=== PATIENT | male | born 1950 | race Caucasian/White ===

== ENCOUNTER → 2017-02-09 | Outpatient (CLI) | payer MEDICARE ==
[~2017-02-09] MED LIST: EFFEXOR XR75 MG PO; LEVOFLOXACIN500 MG PO; MEDROL DOSEPAK4 MG PO; PREVACID30 M1 PO; SPIRIVA18 MCG PO; SYMBICORT1 AE1 INH; TERAZOSIN5 MG PO; TRAZODONE100 MG PO; ZOCOR80 MG PO
== END | disposition home or self-care (01) ==
LOC: CARD 14:38
DX: R06.02 Shortness of breath (principal)

== ENCOUNTER → 2017-06-28 | Outpatient (CLI) | payer MEDICARE | END | disposition home or self-care (01) | LOC: RAD 11:21 | DX: J44.9 Chronic obstructive pulmonary disease, unspecified (principal); F17.200 Nicotine dependence, unspecified, uncomplicated ==

== ENCOUNTER → 2018-02-07 | Outpatient (CLI) | payer MEDICARE | END | disposition home or self-care (01) | LOC: US 12:03 | DX: I73.9 Peripheral vascular disease, unspecified (principal) ==

== ENCOUNTER 2018-09-15 11:08 | Inpatient (IN) | payer MEDICARE ==
[~2018-09-15] VITALS: Ht 152.4 cm; Wt 69.0 kg
--- NOTE | ~2018-09-15 | PR ---
[place], [place] PROGRESS NOTE NAME: GALI BUSTAMANTE [facility] #: [id number] UNIT #: [id number] ROOM: 532 DOCTOR: SYED BRADEN MD BIRTHDATE: [birth year] DOS: SUBJECTIVE: The patient is feeling a lot better. He does not have any new complaints. OBJECTIVE: VITAL SIGNS: Blood pressure is 138/65, pulse of 94, respirations 16, temperature 97.6. LUNGS: Clear. HEART: Regular. ABDOMEN: Soft. EXTREMITIES: Without any edema. ASSESSMENT AND PLAN: 1. Acute exacerbation of chronic obstructive pulmonary disease, improved. 2. Abnormal CT scan. A repeat CT scan to be done in about 3 months. 3. Acute tracheobronchitis, resolved. 4. Moderate cigarette smoker, is refrain from smoking in hospital. Advised against smoking at discharge. SYED BRADEN MD CM:PNTRANS [id number] SYED BRADEN MD 09/18/18 0943 interface
--- NOTE | ~2018-09-15 | DS ---
[place], [place] DISCHARGE SUMMARY NAME: GALI BUSTAMANTE [facility] #: [id number] UNIT #: [id number] ROOM: 532 DOCTOR: SYED BRADEN MD BIRTHDATE: [birth year] DOS: 09/18/2018 The patient was admitted on 09/16/2018 and discharge on 09/18/2018. DIAGNOSES: 1. Acute exacerbation of chronic obstructive pulmonary disease. 2. Acute tracheobronchitis. 3. Benign hypertension. 4. Hypokalemia. 5. Major depression, recurrent, moderate. 6. Lung nodules, which needs to be further worked up as an outpatient with a repeat CAT scan in 3 months. HOSPITAL COURSE: This patient is 68 years old, very well known to us, comes in with complaints of difficulty breathing. He was sick as an outpatient, his p.o. medications did not work. He continued to have a cough and shortness of breath, so he decided to come in. After being seen in the Emergency Room, he was admitted. Chest x-ray did not show any pneumonia or consolidation. Rapid flu was negative. Lactic acid was normal. White cell count was 11.2. The patient was started on steroids, antibiotics, breathing treatments with that there is significant improvement in his condition. He also has been advised not to smoke. A CT of the chest was done, which showed lung nodules, which need to be further followed up as an outpatient since he is a heavy smoker. Repeat CT will be done in 3 months. The patient's blood cultures have come back negative, so plan is to discharge him to home to follow up as an outpatient. DISCHARGE MEDICATIONS: Venlafaxine 150 daily, the dose was increased from 75, Ceftin 250 twice a day for 5 days, prednisone tapering dose, Zocor 80 daily, terazosin 5 daily, Spiriva 1 puff at bedtime, Symbicort 160 two puff twice a day, Prevacid 30 daily, trazodone 100 at bedtime, aspirin 81 daily, omeprazole 20 daily, sildenafil 100 mg daily, prazosin 1 mg daily, lisinopril 10 daily, vitamin D 2000 units daily, mirtazapine 45 at bedtime. [place], [place] DISCHARGE SUMMARY NAME: AGLI BUSTAMANTE [facility] #: [id number] UNIT #: [id number] ROOM: 532 DOCTOR: SYED BRADEN MD BIRTHDATE: [birth year] SYED BRADEN MD CM:CHRIS 8 4 SYED BRADEN MD 09/28/1827 interface
--- NOTE | ~2018-09-15 | PR ---
[place], [place] PROGRESS NOTE NAME: GALI BUSTAMANTE [facility] #: [id number] UNIT #: [id number] ROOM: 532 DOCTOR: SYED BRADEN MD BIRTHDATE: [birth year] DOS: SUBJECTIVE: The patient is feeling much better, does not have any new complaints. OBJECTIVE: VITAL SIGNS: Graphic trend shows a pressure of 152/64, pulse of 82, respirations 20, temperature 97.8. LUNGS: Diminished breath sounds. HEART: Regular. ABDOMEN: Obese, soft. EXTREMITIES: Without any edema. ASSESSMENT AND PLAN: 1. Chronic obstructive pulmonary disease with acute exacerbation. The patient is on maximal treatment plan. 2. Benign hypertension, controlled. 3. Major depression, moderate, recurrent, meds were increased. 4. Lung nodules noted. Repeat images 6 mm, which is the largest. Repeat CT will be ordered in 3 months. SYED BRADEN MD CM:PNTRANS [id number] SYED BRADEN MD 09/17/18 1428 interface
--- NOTE | ~2018-09-15 | WRIGHTHP ---
[place], [place] PATIENT HISTORY AND PHYSICAL EXAM NAME: GALI BUSTAMANTE [facility] #: [id number] UNIT #: [id number] ROOM: 532 DOCTOR: SYED BRADEN MD BIRTHDATE: [birth year] DOS: 09/16/2018 HISTORY OF PRESENT ILLNESS: The patient is 68-year-old very well known to us. The patient was seen in the office about 2 weeks ago. At that time, he was doing well. He called last week complaining of increasing shortness of breath and cough. Antibiotic and steroids were called in, but the patient states it did not work. He continued to be sick. So, he decided finally to come into the Emergency Room yesterday. He has a cough, which is productive of scant amounts of sputum, it is very moist sounding. He denies having any chest pains or palpitations, but has noted some increasing difficulty breathing. He smokes rather heavily about 3 packs of cigarettes, but has not decreased the amount of cigarettes that he has been smoking. PAST MEDICAL HISTORY: Significant for; 1. Benign hypertension. 2. Moderate cigarette smoker. 3. Mixed hyperlipidemia. 4. Major depression, moderate, recurrent. MEDICATIONS: Aspirin 81 mg daily, vitamin D 2000 daily, Prevacid 30 daily, lisinopril 10 daily, mirtazapine 45 daily, omeprazole 20 daily, prazosin 1 mg t.i.d., sildenafil 100 mg daily p.r.n., simvastatin 80 at bedtime, terazosin 5 at bedtime, Spiriva 1 puff b.i.d., trazodone 100 at bedtime, venlafaxine 75 daily. SOCIAL HISTORY: Smokes about close to 3 packs of cigarettes a day. Denies using any alcohol. Lives at home. He is . Children are grown. PHYSICAL EXAMINATION: GENERAL: He is awake and alert and oriented, very moist harsh sounding cough. VITAL SIGNS: Blood pressure is 132/64, pulse of 80, respirations 18, temperature 97.3. LUNGS: Diminished breath sounds, scattered wheezes. HEART: Regular. ABDOMEN: Soft, scaphoid. EXTREMITIES: Without any edema. Rapid flu negative. Lactic acid normal. LABORATORY DATA: White blood cell count 11.2. Comprehensive within normal limits except for blood sugar of 149, potassium is 3.4. Chest x-ray shows no acute lung disease. ASSESSMENT AND PLAN: 1. The patient with chronic obstructive pulmonary disease with acute exacerbation. The patient is placed on IV steroids and breathing treatments. 2. Acute tracheobronchitis. Sputum will be sent for culture. The patient is ordered IV antibiotics. A CT of the chest will be ordered today. 3. Benign hypertension, controlled. 4. Hypokalemia. Supplementation is given. 5. Major depression, increase dose of Effexor. [place], [place] PATIENT HISTORY AND PHYSICAL EXAM [id number] #: [id number] ROOM: [facility] DOCTOR: SYED BRADEN MD BIRTHDATE: [birth year] SYED BRADEN MD CM:HISPHYS:PATIENT HISTORY AND PHYSICAL EXAMINATION 6 9 SYED BRADEN MD 09/16/1850 interface
--- NOTE | ~2018-09-15 | EKG ---
[place], [place] ELECTROCARDIOGRAM REPORT NAME: GALI BUSTAMANTE UNIT #: [id number] ROOM: 532 DOCTOR: TAYE DRAFT REPORT BIRTHDATE: [birth year] [facility] Test Date: 2018-09-15 Test Time: 11:34:24 Pat Name: GALI BUSTAMANTE Department: Room: 532 Gender: M Tire Technician: TREVOR : 1950 Requested By: CROW LOVELACE Order Number: [id number] Reading MD: Gregory Ng MD Measurements Intervals [place] Rate: 95 P: 77 [place]: 156 QRS: -78 QRSD: 90 T: 54 QT: 359 QTc: 452 Interpretive Statements Sinus rhythm Probable left atrial enlargement Left anterior fascicular block Abnormal R-wave progression, early transition Electronically Signed On 09-21-2018 8:44:16 PST by Gregory Ng MD CM:EKGRPT:ELECTROCARDIOGRAM REPORT [id number] CROW LOVELACE EPIPHANY DRAFT REPORT CROW LOVELACE
[2018-09-15 11:10] VITALS: BP 115/69
[2018-09-15 11:56] LABS: BASO % 0.2 % (0.0-1.0); HEMATOCRIT 45.6 % (42.0-52.0); HEMOGLOBIN 15.1 g/dl (14.0-18.0); LYMPH # 1.4 10*3/uL (1.3-4.4); LYMPH % 12.1 % (27.0-41.0); MEAN CELL VOLUME 87.9 fl (80.0-94.0); MEAN CORPUSCULAR HGB 29.1 pg (27.0-31.0); MEAN CORPUSCULAR HGB CONC 33.1 g/dl (33.0-37.0); MEAN PLATELET VOLUME 8.9 fl (9.6-12.3); MONO # 0.4 10*3/uL (0.1-1.0); MONO % 3.6 % (3.0-9.0); NEUT # 9.4 10*3/uL (2.3-7.9); NEUT % 83.4 % (47.0-73.0); PLATELET COUNT AUTOMATED 336 10*3/uL (130-400); RED BLOOD COUNT 5.19 10*6/uL (4.50-5.90); RED CELL DISTRI WIDTH 12.3 % (0-14.5); WHITE BLOOD COUNT 11.2 10*3/uL (4.8-10.8)
[2018-09-15 12:13] LABS: ALBUMIN 2.8 gm/dl (3.1-4.5); ALKALINE PHOSPHATASE 92 U/L (45-117); BUN 17 mg/dl (7-24); CHLORIDE 100 mmol/L (98-107); CREATININE 0.97 mg/dL (0.70-1.30); POTASSIUM 3.4 mmol/L (3.5-5.1); SGOT/AST 16 IU/L (3-35); SGPT/ALT 23 U/L (12-78); SODIUM 141 mmol/L (136-145); TOTAL PROTEIN 7.5 gm/dL (6.4-8.2)
[2018-09-15 12:15] LABS: TROPONIN I < 0.015 ng/ml (<0.045)
[2018-09-15 12:32] VITALS: BP 132/68
--- NOTE | 2018-09-15 12:50 | NUR ---
A 68, admitted to 5E, under the services of SYED Kennedy MD with a diagnosis of COPD EXACERBATION. Chief complaint is SHORTNESS OF BREATH. Patient arrived via bed from ER. Monitor applied. Initial assessment completed. Vital signs taken and recorded. SYED KENNEDY MD notified of admission to the unit. Orders received. See assessment for past medical history, medications and allergies. Patient and/or family oriented to unit. [facility] visitation policy reviewed. Clothing/patient valuable form completed. TEENA NEVES
[2018-09-15] MEDS ORDERED: LOW DOSE ASPIRI81 M1 PO (13:08)
[2018-09-15] MEDS ORDERED: OMEPRAZOLE D/R20 MG PO (13:10)
[2018-09-15 13:13] VITALS: BP 147/72
[2018-09-15] MEDS ORDERED: SILDENAFIL CIT100 MG PO (13:13)
[2018-09-15] MEDS ORDERED: LISINOPRIL10 M1 PO (13:15)
[2018-09-15] MEDS ORDERED: MINIPRESS1 M1 PO (13:15)
[2018-09-15] MEDS ORDERED: MIRTAZAPINE45 MG PO (13:16)
[2018-09-15] MEDS ORDERED: VITAMIN D-32000 UNI1 PO (13:16)
[2018-09-15 16:00] VITALS: BP 149/74
--- NOTE | 2018-09-15 19:21 | NUR ---
PATIENT SLEEPING DURING REPORT. NO S/S OF DISTRESS, RESPS EASY. CALL LIGHT IN REACH
[2018-09-15 20:00] VITALS: BP 146/64
--- NOTE | 2018-09-15 21:36 | NUR ---
PATIENT AWAKE AND ALERT AT THIS TIME. STATED HE WOULD LIKE TO BE A DNR-CC THERE IS NO PAPERWORK ON FILE, WILL GO OVER WITH PATIENT AND SIGN
--- NOTE | 2018-09-15 21:56 | NUR ---
SPOKE WITH PATIENT REGARDING CODE STATUS. HE STATES HE DOES WANT SOME MEDICAL TREATMENTS BUT DOES NOT WANT INTUBATION. PT SIGNED DNRCCA PAPERWORK AND IS AGGREEANCE AND UNDERSTANDING OF WHAT THIS CODE STATUS IS
[2018-09-16] VITALS: BP 132/64
--- NOTE | 2018-09-16 01:30 | NUR ---
PATIENT SLEEPING. NO S/S OF DISTRESS, RESPS EASY ON RA.
--- NOTE | 2018-09-16 04:12 | NUR ---
PATIENT SLEEPING. NO DISTRESS, RESPS EASY. HR 60S PER CM.
--- NOTE | 2018-09-16 06:25 | NUR ---
PATIENT AWAKENS EASILY. NO DISTRESS, NO VOICED CONCERNS.SPO2 ON RA 93%.
[2018-09-16 08:00] VITALS: BP 158/76
[2018-09-16 12:00] VITALS: BP 154/63
[2018-09-16 16:00] VITALS: BP 151/72
[2018-09-16 20:00] VITALS: BP 168/71
[2018-09-17] VITALS (8 sets, daily range): BP systolic 148–180; BP diastolic 60–80
--- NOTE | 2018-09-17 03:52 | NUR ---
24 HR chart check completed.
--- NOTE | 2018-09-17 06:21 | NUR ---
PT CONTINUES TO REFUSE NICOTENE PATCH. PT STATES HE DOES NOT NEED IT. CALL LIGHT IN REACH. NO S/S OF RESPIRATORY DISTRESS NOTED. NO C/O OFFERED AT THIS TIME.
--- NOTE | 2018-09-17 08:48 | NUR ---
VITALS STABLE, A&OX3, JANAE, EQUAL SWITCH TENDER, HEART SOUNDS NORMAL, SKIN PINK, WARM AND DRY, CAP REFILL <3 SECONDS, LUNGS DIMISHED BILATERALLY, BSX4, NONTENDER, NONDESTENDED, NO EDEMA, PPP, PT IS COOPERATIVE, DENIES PAIN AT THIS TIME. WILL CONTINUE TO MONITOR. MOLLY PAN [facility]
--- NOTE | 2018-09-17 09:00 | NUR ---
Software Engineer in to talk to patient. Patient states lives at home with his . There are 10 steps in the home. Physician: Dr. Brandy Ford [facility] Home health services: none Patient's level of ADLs: INDEPENDENT Patient has working utilities: yes DME: nebulizer Follow-up physician's appointment after d/c: he prefers to make his own follow up appt after discharge Does patient want to access PORTAL?: no Discharge plan discussed with patient. He lives at home with his . He is independent in his ADLs and ambulation. Discussed home health care services and he denies any home needs at this time. When medically stable he will be discharged to home. DESIREE ISRAEL
--- NOTE | 2018-09-17 12:00 | NUR ---
VITALS STABLE, A&0X3, JANAE, EQUAL COOLING PIPE INSPECTOR, HEART SOUNDS NORMAL, LUNGS DIMINISHED BILATERALLY, NONPRODUCTIVE COUGH, SKIN WARM, DRY AND PINK, CAP REFILL <3 SECONDS, BSX4, NONTENDER, NONDISTENDED, POSITIVE PEDAL PULSES, NO COMPLAINTS OF PAIN AT THIS TIME, WILL CONTINUE TO ASSESS. [facility]
--- NOTE | 2018-09-17 15:00 | NUR ---
BEDSIDE REPORT OBTAINED FROM AUGUSTO-RYAN. PATIENT APPEARS TO BE ASLEEP AT THIS TIME, EYES CLOSED. NO S&S OF DISTRESS NOTED, RESP ARE ERND ON ROOM AIR. BED IS LOCKED IN LOWEST POSITION, CALL LIGHT LEFT WITHIN REACH.
--- NOTE | 2018-09-17 19:00 | NUR ---
PT AWAKE IN BED DURING BEDSIDE SHIFT REPORT. NO C/O VOICED. CALL LIGHT IN REACH.
--- NOTE | 2018-09-17 22:57 | NUR ---
DR. HOUSE NOTIFIED OF PT'S BP OF 172/62 AFTER HIS HS DOSE OF HYTRIN 5MG. T.O. RCVD FOR CLONIDINE 0.1MG PO X1 NOW.
--- NOTE | 2018-09-17 23:31 | NUR ---
PT MEDICATED W/CLONIDINE PO FOR HTN. PT RESTING QUIETLY IN BED AT THIS TIME. DENIES ANY S/S OF HTN. WILL RECHECK IN 1 HR.
[2018-09-18] VITALS: BP 138/65
--- NOTE | 2018-09-18 04:29 | NUR ---
24 HR chart check completed.
--- NOTE | 2018-09-18 06:42 | NUR ---
PT SAT 88-92% ON RA WHILE RESTING. WOULD YOU LIKE TO ORDER ASSESS FOR HOME O2 PRIOR TO D/C?
[2018-09-18] MEDS ORDERED: VENLAFAXINE HYD75 M3 PO (08:47)
[2018-09-18] MEDS ORDERED: PREDNISONE5 MG PO (08:48)
[2018-09-18] MEDS ORDERED: CEFUROXIME AXE250 MG PO (08:48)
--- NOTE | 2018-09-18 09:40 | NUR ---
Discharge instructions reviewed with patient/family. Patient receptive and verbalizes understanding. Follow-up care arranged. Written instructions given to patient/family. KAVITA KIRK
== END 2018-09-18 09:40 | disposition home or self-care (01) | DRG 191 ==
LOC: ED 11:08 → 5E 12:24 → EDHOLD 12:24 → 5E 12:31
PROVIDERS: Nurse Practitioner Family; ADMIT Internal Medicine
DX: J44.0 Chronic obstructive pulmonary disease with (acute) lower respiratory infection (principal); F33.1 Major depressive disorder, recurrent, moderate; J20.9 Acute bronchitis, unspecified; J44.1 Chronic obstructive pulmonary disease with (acute) exacerbation; F17.210 Nicotine dependence, cigarettes, uncomplicated; Z66 Do not resuscitate; Z51.5 Encounter for palliative care; E78.2 Mixed hyperlipidemia; I10 Essential (primary) hypertension; E87.6 Hypokalemia; R91.8 Other nonspecific abnormal finding of lung field; Z82.5 Family history of asthma and other chronic lower respiratory diseases; Z83.79 Family history of other diseases of the digestive system; Z71.6 Tobacco abuse counseling

== ENCOUNTER → 2019-01-03 | Outpatient (CLI) | payer MEDICARE ==
[~2019-01-03] MED LIST changes: +CEFUROXIME AXE250 MG PO; +LISINOPRIL10 M1 PO; +LOW DOSE ASPIRI81 M1 PO; +MINIPRESS1 M1 PO; +MIRTAZAPINE45 MG PO; +OMEPRAZOLE D/R20 MG PO; +PREDNISONE5 MG PO; +SILDENAFIL CIT100 MG PO; +VENLAFAXINE HYD75 M3 PO; +VITAMIN D-32000 UNI1 PO
[2019-01-03 12:16] LABS: CREATININE 1.28 mg/dL (0.70-1.30)
== END | disposition home or self-care (01) ==
LOC: LAB 11:24
PROVIDERS: Internal Medicine
DX: R91.1 Solitary pulmonary nodule (principal)

== ENCOUNTER 2019-12-24 12:03 | Inpatient (IN) | payer MEDICARE ==
[2019-12-24] VITALS (8 sets, daily range): BP systolic 126–155; BP diastolic 58–72
[~2019-12-24] VITALS: Ht 180.3 cm; Wt 76.8 kg
[2019-12-24 12:49] LABS: BASO % 0.4 % (0.0-1.0); EOS # 0.1 10*3/uL (0.0-0.4); EOS % 0.9 % (1.0-4.0); HEMATOCRIT 40.1 % (42.0-52.0); HEMOGLOBIN 12.7 g/dl (14.0-18.0); LYMPH # 1.7 10*3/uL (1.3-4.4); LYMPH % 19.3 % (27.0-41.0); MEAN CELL VOLUME 86.2 fl (80.0-94.0); MEAN CORPUSCULAR HGB 27.3 pg (27.0-31.0); MEAN CORPUSCULAR HGB CONC 31.7 g/dl (33.0-37.0); MEAN PLATELET VOLUME 9.1 fl (9.6-12.3); MONO # 0.7 10*3/uL (0.1-1.0); NEUT # 6.4 10*3/uL (2.3-7.9); PLATELET COUNT AUTOMATED 407 10*3/uL (130-400); RED BLOOD COUNT 4.65 10*6/uL (4.50-5.90); RED CELL DISTRI WIDTH 13.3 % (0-14.5)
--- NOTE | 2019-12-24 12:58 | NUR ---
PT GIVEN PILLOW READJUST BED POSITION TO FOWLERS POSITION OF COMFORT PT PLACED ON O2 AT 2LPM PULS OX FROM 93% RA TO 97% AT 2LPM PT HAS NO REQUESTS AT THIS TIME
[2019-12-24 13:02] LABS: ALBUMIN 2.6 gm/dl (3.1-4.5); ALKALINE PHOSPHATASE 87 U/L (45-117); BUN 15 mg/dl (7-24); CHLORIDE 101 mmol/L (98-107); CREATININE 1.23 mg/dL (0.70-1.30); POTASSIUM 3.1 mmol/L (3.5-5.1); SGOT/AST 14 IU/L (3-35); SGPT/ALT 22 U/L (12-78); SODIUM 139 mmol/L (136-145); TOTAL PROTEIN 7.9 gm/dL (6.4-8.2); TROPONIN I < 0.015 ng/ml (<0.045)
--- NOTE | 2019-12-24 13:18 | NUR ---
PT REPORT NO CHANGE IN BREATHING EFFORT AFTER BREATHING TX AND O2 VIA NASAL CANNULA
--- NOTE | 2019-12-24 14:00 | NUR ---
PT IN BED RESTING SPOUSE AT BEDSIDE NO REQUESTS AWAITING ROOM FOR ADMISSION
--- NOTE | 2019-12-24 14:51 | NUR ---
Time: 1449 A 69 year old MALE admitted to under services of SYED KENNEDY MD. Pt. arrived via stretcher from ER. Chief complaint: SHORTNESS OF BREATH AT HOME. ZENAIDA FITZGERALD
[2019-12-24] MEDS ORDERED: CYMBALTA60 MG PO (15:20)
[2019-12-24] MEDS ORDERED: LOSARTAN-HCTZ1 EACH PO (15:21)
[2019-12-24] MEDS ORDERED: FLOMAX0.4 MG PO (15:22)
[2019-12-24] MEDS ORDERED: SPIRIVA -- 3018 MCG INH (15:22)
--- NOTE | 2019-12-24 19:20 | NUR ---
IN PT ROOM AT THIS TIME COMPLETING ASSESSMENT. PT STATES THAT HE IS SWEATING AND IS HOT, CHECKED HIS TEMPERATURE AND IT WAS 97.7. HE DENIES COUGHING UP ANY PHLEGM AT THIS TIME. PT HAS NO OTHER NEEDS/ CONCERNS AT THIS TIME. CALL LIGHT IS WITHIN REACH, WILL CONTINUE TO MONITOR
[2019-12-25] VITALS: BP 132/59
--- NOTE | 2019-12-25 00:49 | NUR ---
24 HR chart check completed.
--- NOTE | 2019-12-25 02:54 | NUR ---
Patient sleeping. Respirations relaxed and easy. Sweeties GRACE Wilson
[2019-12-25 06:47] LABS: BASO % 0.1 % (0.0-1.0); HEMOGLOBIN 12.6 g/dl (14.0-18.0); LYMPH # 0.9 10*3/uL (1.3-4.4); LYMPH % 10.2 % (27.0-41.0); MEAN CELL VOLUME 87.1 fl (80.0-94.0); MEAN CORPUSCULAR HGB 27.5 pg (27.0-31.0); MEAN CORPUSCULAR HGB CONC 31.5 g/dl (33.0-37.0); MEAN PLATELET VOLUME 9.5 fl (9.6-12.3); MONO # 0.3 10*3/uL (0.1-1.0); MONO % 2.7 % (3.0-9.0); NEUT % 86.6 % (47.0-73.0); PLATELET COUNT AUTOMATED 434 10*3/uL (130-400); RED BLOOD COUNT 4.59 10*6/uL (4.50-5.90); RED CELL DISTRI WIDTH 13.2 % (0-14.5); WHITE BLOOD COUNT 9.2 10*3/uL (4.8-10.8)
[2019-12-25 07:11] LABS: BUN 18 mg/dl (7-24); CHLORIDE 104 mmol/L (98-107); CREATININE 1.32 mg/dL (0.70-1.30); POTASSIUM 3.8 mmol/L (3.5-5.1); SODIUM 142 mmol/L (136-145)
[2019-12-25 08:00] VITALS: BP 131/63
--- NOTE | 2019-12-25 09:00 | NUR ---
Fruit Grader in to talk to patient. Patient states lives at home with his . There are 10 steps in the home. Physician: Dr. Brandy Ford Pharmacy: [facility] Home health services: none Patient's level of ADLs: INDEPENDENT Patient has working utilities: yes DME: nebulizer Follow-up physician's appointment after d/c: he prefers to make his own follow up appt after discharge Does patient want to access PORTAL?: no Discharge plan discussed with patient. He lives at home with his . He is independent in his ADLs and ambulation. Discussed home health care services and he denies any home needs at this time. When medically stable he will be discharged to home. He states his will provide transportation on discharge. DESIREE ISRAEL
[2019-12-25 12:00] VITALS: BP 128/50
[2019-12-25 16:00] VITALS: BP 123/56
[2019-12-25 20:12] VITALS: BP 137/58
--- NOTE | 2019-12-25 20:46 | NUR ---
IN TO ASSESS PATIENT, PATIENT PLEASANT AND COOPERATIVE WITH ASSESSMENT. NO DISTRESS NOTED ON 2L PATIENT STATES HE ONLY GETS SHORT OF BREATH WITH EXERTION. LUNGS DIMISNIHED WITH RONCHI POSTERIOR AND FAINT EXPIRATORY WHEEZE T/O. PATIENT STATES HE HAS A NON PRODUCTIVE COUGH. CALL LIGHT WIHTIN REACH, WILL MONITOR
[2019-12-26] VITALS: BP 113/50
--- NOTE | 2019-12-26 03:13 | NUR ---
24 HR chart check completed.
[2019-12-26 08:00] VITALS: BP 162/74
--- NOTE | 2019-12-26 08:00 | NUR ---
PATIENT AWAKE, ALERT AND ORIENTED. NO STATED COMPLAINTS AT THIS TIME. DENIES PAIN. PT IS PLEASANT AND COOPERATIVE. RESPIRATIONS ARE EASY AND REGULAR AT REST. ROOM AIR. NO DISTRESS NOTED. BED IN LOWEST LOCKED POSITION AND CALL LIGHT WTIHIN REACH. WILL CONTINUE TO MONITOR.
--- NOTE | 2019-12-26 08:42 | NUR ---
Cobol Programmer in to see patient. No new needs or request at this time. He denies any home needs. When medically stable he will be discharged to home.
--- NOTE | 2019-12-26 09:20 | NUR ---
pt assessed for home oxygen. pt qualified. pt at rest spo2 93% ra, hr 99, rr 18, b/p 113/50 pt ambulated spo2 87-88% ra placed pt on 2lnc. pt at rest spo2 94% 2lnc, hr 127, rr 21, b/p 132/[address] portillo notified.
--- NOTE | 2019-12-26 09:30 | NUR ---
PT WALKING IN HALLS BEING EVALUATED FOR HOME O2.
--- NOTE | 2019-12-26 11:19 | NUR ---
IN TO ROOM. PATIENT SITTING IN BED, READING NEWSPAPER. PT DENIES PAIN AND HAS NO COMPLAINTS AT THIS TIME. ROOM AIR AND NO SOB NOTED AT REST. BED IN LOWEST LOCKED POSITION AND CALL LIGHT WITHIN REACH. WILL CONTINUE TO MONITOR.
[2019-12-26 12:00] VITALS: BP 154/69
[2019-12-26 16:00] VITALS: BP 151/68
[2019-12-26 20:00] VITALS: BP 163/69
--- NOTE | 2019-12-26 23:03 | NUR ---
24 HR chart check completed.
[2019-12-27] VITALS: BP 161/80; BP 170/76
[2019-12-27 05:53] VITALS: BP 168/84
[2019-12-27] MEDS ORDERED: CEFUROXIME AXE250 MG PO (07:48)
[2019-12-27] MEDS ORDERED: PREDNISONE5 MG PO (07:48)
[2019-12-27 08:00] VITALS: BP 182/80
--- NOTE | 2019-12-27 08:05 | NUR ---
DR. Ford notified of elevated bp of 182/80. States she will add norvasc to home meds and to give dose prior to dc.
[2019-12-27] MEDS ORDERED: NORVASC2.5 MG PO (08:15)
--- NOTE | 2019-12-27 08:43 | NUR ---
Faxed nebulizer prescription to [facility]. Awaiting response.
--- NOTE | 2019-12-27 08:47 | NUR ---
FAXED OXYGEN ORDER TO [facility], RN NOTIFIED.
--- NOTE | 2019-12-27 08:51 | NUR ---
Dynamite Reclaimer in to see patient. Notified patient nebulizer prescription was sent to [facility] where his O2 will be delivered from and he verbalized an understanding. Discussed home health care services and he denies any home needs at this time. He is awaiting his discharge.
--- NOTE | 2019-12-27 10:35 | NUR ---
Received call from Patricia at [facility] regarding Dr. Ford requesting to have patient's duoneb and pulmicort filled through them. Notified Dr. Ford and Dr. Ford's office staff to be aware of fax.
--- NOTE | 2019-12-27 11:06 | NUR ---
Awaiting delivery of oxygen prior to discharge to home. Pt updated. Respiratory called and place order over an hour ago so hopefully soon.
[2019-12-27 12:00] VITALS: BP 158/72
--- NOTE | 2019-12-27 13:15 | NUR ---
Pt dc in care of wheelchair. Pt has oygen for home use with him and meds from pharmacy were given to pt. Explained new scripts. Rechecked pt BP at this time 162/78. Pt taken out via wheelchair to ER exit for daughter to supervisor opening and picking.
== END 2019-12-27 13:15 | disposition home or self-care (01) | DRG 682 ==
LOC: ED 12:03 → 4E 14:24 → EDHOLD 14:24 → 4E 14:39
PROVIDERS: Emergency Medicine; ADMIT Internal Medicine
DX: N17.0 Acute kidney failure with tubular necrosis (principal); J96.01 Acute respiratory failure with hypoxia; J44.1 Chronic obstructive pulmonary disease with (acute) exacerbation; J20.9 Acute bronchitis, unspecified; I10 Essential (primary) hypertension; F32.9 Major depressive disorder, single episode, unspecified; Z87.891 Personal history of nicotine dependence; Z79.82 Long term (current) use of aspirin; Z79.899 Other long term (current) drug therapy

== ENCOUNTER 2020-08-17 11:30 | Inpatient (IN) | payer MEDICARE ==
[~2020-08-17] VITALS: Ht 178 cm; Wt 82.2 kg
[~2020-08-17 11:30] MED LIST changes: +CYMBALTA60 MG PO; +FLOMAX0.4 MG PO; +LOSARTAN-HCTZ1 EACH PO; +NORVASC2.5 MG PO; +SPIRIVA RESPIMAT4 GM INH
[2020-08-17 11:42] VITALS: BP 158/78
[2020-08-17 11:57] LABS: BASO % 0.4 % (0.0-1.0); EOS # 0.1 10*3/uL (0.0-0.4); EOS % 1.8 % (1.0-4.0); HEMATOCRIT 43.8 % (42.0-52.0); LYMPH # 1.7 10*3/uL (1.3-4.4); LYMPH % 23.3 % (27.0-41.0); MEAN CELL VOLUME 84.2 fl (80.0-94.0); MEAN CORPUSCULAR HGB 26.5 pg (27.0-31.0); MEAN CORPUSCULAR HGB CONC 31.5 g/dl (33.0-37.0); MEAN PLATELET VOLUME 9.6 fl (9.6-12.3); MONO # 0.6 10*3/uL (0.1-1.0); MONO % 7.5 % (3.0-9.0); NEUT # 4.9 10*3/uL (2.3-7.9); NEUT % 66.7 % (47.0-73.0); PLATELET COUNT AUTOMATED 239 10*3/uL (130-400); RED CELL DISTRI WIDTH 14.3 % (0-14.5); WHITE BLOOD COUNT 7.4 10*3/uL (4.8-10.8)
[2020-08-17 12:07] LABS: CHLORIDE 106 mmol/L (98-107); POTASSIUM 3.8 mmol/L (3.5-5.1); SODIUM 140 mmol/L (136-145)
[2020-08-17 12:08] LABS: ACT PARTIAL THROMBO TIME 30.7 SECONDS (20.0-32.1)
[2020-08-17 12:15] VITALS: BP 142/66
[2020-08-17 12:23] LABS: ALBUMIN 3.6 gm/dl (3.1-4.5); ALKALINE PHOSPHATASE 101 U/L (45-117); BUN 16 mg/dl (7-24); SGOT/AST 18 IU/L (3-35); SGPT/ALT 31 U/L (12-78); TOTAL PROTEIN 7.8 gm/dL (6.4-8.2)
[2020-08-17 12:28] LABS: TROPONIN I < 0.015 ng/ml (<0.045)
[2020-08-17 14:19] VITALS: BP 145/72
[2020-08-17 15:32] VITALS: BP 156/78
--- NOTE | 2020-08-17 15:42 | NUR ---
CALLED DR. BRADEN FOR ADMISSION ORDERS. LEFT VOICEMAIL AWAITING RETURN CALL.
--- NOTE | 2020-08-17 15:49 | NUR ---
RETURN CALL FROM DR. BRADEN
--- NOTE | 2020-08-17 16:16 | NUR ---
CONSULT FOR DR. STEVE WASSERMAN. STATES HE WAS AWARE.
[2020-08-17 18:04] VITALS: BP 131/69
--- NOTE | 2020-08-17 18:50 | NUR ---
PT RESTING IN BED WATCHING TV. IV ATB COMPLETED. DENIES THE NEED FOR ANYTHING AT THIS TIME. CALL LIGHT WITHIN REACH.
--- NOTE | 2020-08-17 19:41 | NUR ---
attempted to call Gina DAVIS to see if she was ready for admission, did not get an answer at this time. Will call back
--- NOTE | 2020-08-17 20:28 | NUR ---
NEW ORDER PER DR. BRADEN IS TYLENOL 650MG EVERY 6 HOURS PRN FOR PAIN
[2020-08-18] VITALS (7 sets, daily range): BP systolic 137–169; BP diastolic 59–76
--- NOTE | 2020-08-18 01:28 | NUR ---
PATIENT UP AND AMBULATED TO BATHROOM WITH STEADY GAIT. DENIES NEED FOR ANYTHING AT THIS TIME. CALL LIGHT WITHIN REACH.
--- NOTE | 2020-08-18 02:32 | NUR ---
PATIENT RESTING IN BED WITH EYES CLOSED, CALL LIGHT WITHIN REACH.
--- NOTE | 2020-08-18 02:57 | NUR ---
ASSUMED PT CARE FROM NORAH PEREZ
--- NOTE | 2020-08-18 03:27 | NUR ---
PT RESTING IN BED WITH EYES OPEN, NO DISTRESS NOTED, CALL LIGHT WITHIN REACH, RN WILL CONTINUE TO MONITOR
--- NOTE | 2020-08-18 07:26 | NUR ---
REPORT RECIEVED FORM HUMBERTO DAVIS
--- NOTE | 2020-08-18 07:26 | NUR ---
PT IN BED RECIEVING RESP TREATMENT PT WITH NO REQUESTS AT THIS TIME
--- NOTE | 2020-08-18 07:34 | NUR ---
PHARM TO SEND SOLU-MEDROL MED IS NOT LISTED IN [facility]
[2020-08-18] MEDS ORDERED: DULERA 200 MCG8.8 GM INH (08:33)
[2020-08-18] MEDS ORDERED: COZAAR50 M1 PO (08:34)
--- NOTE | 2020-08-18 09:19 | NUR ---
PT OFFERED O2 NC PT REFUSED
--- NOTE | 2020-08-18 09:36 | NUR ---
TOLD TO HOLD PT IN ER FOR DR WILSON FOR EVAL
--- NOTE | 2020-08-18 10:30 | NUR ---
A 69, admitted to 5E, under the services of SYED Kennedy MD with a diagnosis of COPD. Chief complaint is SHORTNESS OF BREATH. Patient arrived via bed from ER. Monitor applied. Initial assessment completed. Vital signs taken and recorded. SYED KENNEDY MD notified of admission to the unit. Orders received. See assessment for past medical history, medications and allergies. Patient and/or family oriented to unit. [facility] visitation policy reviewed. Clothing/patient valuable form completed. TEENA NEVES
--- NOTE | 2020-08-18 12:30 | NUR ---
Automotive Quality Engineer in to talk to patient. Patient states lives at home with his . There are 10 steps in the home. Physician: Dr. Brandy Ford Pharmacy: [facility] Home health services: none Patient's level of ADLs: INDEPENDENT Patient has working utilities: yes DME: nebulizer, O2 @ 2L nc @ HS, portable O2 tank, O2 supplier [facility] Follow-up physician's appointment after d/c: he prefers to make his own follow up appt after discharge Does patient want to access PORTAL?: no Discharge plan discussed with patient. He lives at home with his . He is independent in his ADLs and ambulation. Discussed home health care services and he declines. CM will continue to follow for any discharge planning needs. When medically stable he will be discharged to home. He states his will provide transportation on discharge. DESIREE ISRAEL
--- NOTE | 2020-08-18 19:54 | NUR ---
NEW IV TO RAC ESTABLISED. TOLERATED WELL. DILAUDID GIVEN PER ORDERS OF BACK PAIN RATED 8/10. WILL MONITOR EFFECTIVENESS. CALL LIGHT IN REACH.
--- NOTE | 2020-08-18 20:46 | NUR ---
PER PT. DILAUDID EFFECTIVE. PAIN RATED 0/10. WILL MONITOR. ASKED PT IF HE WANTED TO BE WOKEN FOR PAIN MEDS DUE AT 0300. SAID NO.
[2020-08-19] VITALS (9 sets, daily range): BP systolic 146–173; BP diastolic 65–95
--- NOTE | 2020-08-19 01:24 | NUR ---
24HR CHART CHECK COMPLETED
[2020-08-19 06:17] LABS: BASO % 0.1 % (0.0-1.0); HEMATOCRIT 42.6 % (42.0-52.0); LYMPH % 7.7 % (27.0-41.0); MEAN CELL VOLUME 85.2 fl (80.0-94.0); MEAN CORPUSCULAR HGB 26.4 pg (27.0-31.0); MEAN PLATELET VOLUME 9.8 fl (9.6-12.3); MONO # 0.6 10*3/uL (0.1-1.0); MONO % 4.5 % (3.0-9.0); NEUT # 11.1 10*3/uL (2.3-7.9); NEUT % 87.1 % (47.0-73.0); PLATELET COUNT AUTOMATED 237 10*3/uL (130-400); RED CELL DISTRI WIDTH 14.4 % (0-14.5); WHITE BLOOD COUNT 12.8 10*3/uL (4.8-10.8)
[2020-08-19 06:33] LABS: BUN 25 mg/dl (7-24); CHLORIDE 108 mmol/L (98-107); CREATININE 1.19 mg/dL (0.70-1.30); POTASSIUM 4.2 mmol/L (3.5-5.1); SODIUM 145 mmol/L (136-145)
--- NOTE | 2020-08-19 07:30 | NUR ---
PT OFF FLOOR VIA BED TO OR FOR BRONCH WITH DR WILSON.
--- NOTE | 2020-08-19 09:00 | NUR ---
CM in to see patient. He is currently not in his room. He is having a bronchoscopy. Will follow up at a later time.
--- NOTE | 2020-08-19 20:26 | NUR ---
PT GIVEN A FLUTTER AND DEMONSTRATED PROPER USE.
--- NOTE | 2020-08-19 21:43 | NUR ---
NOTIFIED DR BRADEN OF PT BP. PER DR BRADEN SHE WILL ADDRESS IT IN AM.
[2020-08-20 00:18] VITALS: BP 162/75
--- NOTE | 2020-08-20 03:38 | NUR ---
24 HR chart check completed.
[2020-08-20 08:00] VITALS: BP 184/92
--- NOTE | 2020-08-20 08:50 | NUR ---
AWARE OF ELEVATED BP THIS AM.
--- NOTE | 2020-08-20 09:00 | NUR ---
CM in to see patient. No new needs or request at this time. He states he feels better after his bronchoscopy yesterday and Dr. Ford told him he would probably go home tomorrow. Discussed home health care services and he declines. CM will continue to follow for any discharge planning needs. When medically stable he will be discharged to home.
--- NOTE | 2020-08-20 10:03 | NUR ---
ROUTINE DILAUDID GIVEN TO PATIENT PER ORDER. WILL MONITOR EFFECTIVENESS.
[2020-08-20 10:09] LABS: ACID FAST SPEC PROCESSING Concentration (.)
[2020-08-20 12:00] VITALS: BP 162/94
[2020-08-20 16:00] VITALS: BP 186/90
--- NOTE | 2020-08-20 16:48 | NUR ---
NOTIFIED REGARDING ELEVATED BP. BP 186/90. NEW ORDERS RECEIVED.
[2020-08-20 20:00] VITALS: BP 180/98; BP 190/92
--- NOTE | 2020-08-20 20:24 | NUR ---
SPOKE WITH DR. HOUSE. NOTIFIED HIM OF PATIENTS BLOOD PRESSURE BEING 180/98 MANUALLY. NOTIFIED HIM OF INCREASE IN COZA[place] AND DOSE OF CLONIDIDNE GIVEN AT 174. HE STATD TO GIVE HIM ANOTHER DOSE OF CLONIDINE 0.1MG
[2020-08-20 22:15] VITALS: BP 150/76
[2020-08-21] VITALS: BP 162/80; BP 172/94
--- NOTE | 2020-08-21 03:41 | NUR ---
PATIENT SLEEPING, NO DISTRESS NOTED. 2L NC INTACT. CALL LIGHT WITHIN REACH, WILL JOHANNAIOR
--- NOTE | 2020-08-21 04:45 | NUR ---
24 HR chart check completed.
--- NOTE | 2020-08-21 06:44 | NUR ---
PATIENTS BP 168/96. ORDER RECIEVED FROM DR. BRADEN FOR NORVASC 5MG TO BE GIVEN NOW
[2020-08-21] MEDS ORDERED: LOSARTAN POTAS100 M1 PO ×2 (06:51)
[2020-08-21] MEDS ORDERED: AMLODIPINE BESYL5 MG PO (06:51)
[2020-08-21] MEDS ORDERED: PREDNISONE5 MG PO ×2 (06:51)
[2020-08-21] MEDS ORDERED: DOXYCYCLINE100 M3 PO ×2 (06:51)
[2020-08-21] MEDS ORDERED: FLUCONAZOLE100 MG PO ×2 (06:54)
--- NOTE | 2020-08-21 07:30 | NUR ---
TOOK OVER CARE OF PT AT THIS TIME. PT RESTING IN BED. RESPIRATIONS EASY AND UNLABORED. NO S/S OF DISTRESS. CALL LIGHT IN REACH.
[2020-08-21 08:00] VITALS: BP 170/82
--- NOTE | 2020-08-21 08:40 | NUR ---
PT C/O GENERALIZED PAIN/BACK PAIN. DR BRADEN NOTIFIED AND GIVES OKAY FOR PT TO HAVE 1100 DOSE OF DILAUDID NOW. PT DID NOT RECEIVED 0300 DOSE DUE TO SLEEPING. WILL MONITOR FOR EFFECTIVENESS.
--- NOTE | 2020-08-21 09:40 | NUR ---
PT STATES THAT DILAUDID IS EFFECTIVE.
--- NOTE | 2020-08-21 11:45 | NUR ---
DR BRADEN NOTIFIED THAT PT ECHO IS COMPLETE AND UPDATED ON BP. PHYSICIAN STATES THAT PT CAN BE DISCHARGED HOME.
--- NOTE | 2020-08-21 11:47 | NUR ---
Discharge instructions reviewed with patient/family. Patient receptive and verbalizes understanding. Follow-up care arranged. Written instructions given to patient/family. BIBI MAYS
[2020-08-21 11:49] VITALS: BP 148/72
--- NOTE | 2020-08-21 11:55 | NUR ---
PT LEAVES FLOOR AT THIS TIME VIA W/C FOR CAR IN PARKING LOT.
[2020-08-21 12:00] VITALS: BP 132/78
[2020-10-14 10:11] LABS: ACID FAST CULTURE Negative (.)
== END 2020-08-21 11:55 | disposition home or self-care (01) | DRG 202 ==
LOC: ED 11:30 → EDHOLD 13:04 → 4E 17:52 → EDHOLD 17:52 → 4E 17:52 → 5E 18:02 → EDHOLD 18:02 → 5E 08-18 08:32
PROVIDERS: Emergency Medicine; Internal Medicine Critical Care Medicine; ADMIT Internal Medicine; ATTEND Internal Medicine
PROC: 0BC18ZZ Extirpation of Matter from Trachea, Via Natural or Artificial Opening Endoscopic (ICD-10-PCS; principal; 2020-08-19)
PROC: 0BC98ZZ Extirpation of Matter from Lingula Bronchus, Via Natural or Artificial Opening Endoscopic (ICD-10-PCS; 2020-08-19)
PROC: 0BC48ZZ Extirpation of Matter from Right Upper Lobe Bronchus, Via Natural or Artificial Opening Endoscopic (ICD-10-PCS; 2020-08-19)
PROC: 0BC88ZZ Extirpation of Matter from Left Upper Lobe Bronchus, Via Natural or Artificial Opening Endoscopic (ICD-10-PCS; 2020-08-19)
PROC: 0BC58ZZ Extirpation of Matter from Right Middle Lobe Bronchus, Via Natural or Artificial Opening Endoscopic (ICD-10-PCS; 2020-08-19)
PROC: 0BC38ZZ Extirpation of Matter from Right Main Bronchus, Via Natural or Artificial Opening Endoscopic (ICD-10-PCS; 2020-08-19)
PROC: 0BC78ZZ Extirpation of Matter from Left Main Bronchus, Via Natural or Artificial Opening Endoscopic (ICD-10-PCS; 2020-08-19)
PROC: 0BC68ZZ Extirpation of Matter from Right Lower Lobe Bronchus, Via Natural or Artificial Opening Endoscopic (ICD-10-PCS; 2020-08-19)
PROC: 0BCB8ZZ Extirpation of Matter from Left Lower Lobe Bronchus, Via Natural or Artificial Opening Endoscopic (ICD-10-PCS; 2020-08-19)
DX: J20.9 Acute bronchitis, unspecified (principal); J44.1 Chronic obstructive pulmonary disease with (acute) exacerbation; F33.1 Major depressive disorder, recurrent, moderate; J96.10 Chronic respiratory failure, unspecified whether with hypoxia or hypercapnia; J44.0 Chronic obstructive pulmonary disease with (acute) lower respiratory infection; R91.8 Other nonspecific abnormal finding of lung field; K21.9 Gastro-esophageal reflux disease without esophagitis; E78.00 Pure hypercholesterolemia, unspecified; N40.0 Benign prostatic hyperplasia without lower urinary tract symptoms; E66.9 Obesity, unspecified; I10 Essential (primary) hypertension; G89.29 Other chronic pain; F17.210 Nicotine dependence, cigarettes, uncomplicated; M54.30 Sciatica, unspecified side; M48.061 Spinal stenosis, lumbar region without neurogenic claudication; B37.9 Candidiasis, unspecified; Z82.5 Family history of asthma and other chronic lower respiratory diseases; Z83.79 Family history of other diseases of the digestive system; Z90.49 Acquired absence of other specified parts of digestive tract; Z68.25 Body mass index [BMI] 25.0-25.9, adult

== ENCOUNTER 2020-10-02 14:21 | Inpatient (IN) | payer MEDICARE ==
[~2020-10-02] VITALS: Ht 177.8 cm; Wt 79.5 kg
[~2020-10-02 14:21] MED LIST changes: +AMLODIPINE BESYL5 MG PO; +COZAAR50 M1 PO; +DOXYCYCLINE100 M3 PO; +DULERA 200 MCG8.8 GM INH; +FLUCONAZOLE100 MG PO; +LOSARTAN POTAS100 M1 PO
[2020-10-02 14:40] VITALS: BP 113/38
[2020-10-02 15:19] LABS: BASO % 0.1 % (0.0-1.0); HEMATOCRIT 43.2 % (42.0-52.0); LYMPH # 1.8 10*3/uL (1.3-4.4); LYMPH % 22.2 % (27.0-41.0); MEAN CELL VOLUME 82.6 fl (80.0-94.0); MEAN CORPUSCULAR HGB 26.8 pg (27.0-31.0); MEAN CORPUSCULAR HGB CONC 32.4 g/dl (33.0-37.0); MEAN PLATELET VOLUME 9.9 fl (9.6-12.3); MONO # 0.5 10*3/uL (0.1-1.0); MONO % 5.9 % (3.0-9.0); NEUT # 5.9 10*3/uL (2.3-7.9); NEUT % 71.4 % (47.0-73.0); PLATELET COUNT AUTOMATED 167 10*3/uL (130-400); RED BLOOD COUNT 5.23 10*6/uL (4.50-5.90); RED CELL DISTRI WIDTH 15.5 % (0-14.5); WHITE BLOOD COUNT 8.2 10*3/uL (4.8-10.8)
[2020-10-02 15:30] LABS: ACT PARTIAL THROMBO TIME 33.1 SECONDS (20.0-32.1); INTERNATIONAL NORM RATIO 1.1 (2.0-3.5)
[2020-10-02 15:34] LABS: ALBUMIN 3.4 gm/dl (3.1-4.5); ALKALINE PHOSPHATASE 82 U/L (45-117); BUN 23 mg/dl (7-24); CHLORIDE 103 mmol/L (98-107); CREATININE 1.91 mg/dL (0.70-1.30); LIPASE 86 U/L (73-393); POTASSIUM 3.2 mmol/L (3.5-5.1); SGOT/AST 24 IU/L (3-35); SGPT/ALT 26 U/L (12-78); SODIUM 136 mmol/L (136-145); TROPONIN I < 0.015 ng/ml (<0.045)
[2020-10-02 17:51] LABS: ABG BASE EXCESS 0.4 mmol/L (-2.0-2.0); ARTERIAL BLOOD GAS PH 7.394 (7.35-7.45)
--- NOTE | 2020-10-02 18:45 | NUR ---
DAUGHTER PHONE NUMBER
--- NOTE | 2020-10-02 19:20 | NUR ---
NURSE TO NURSE REPORT GIVEN TO THIS RN.PT AMBULATORY TO AND FROM BEDSIDE TOILET.ADVISED PT DOES HAVE SOME DIARRHEA AT THIS TIME.INFUSION OF NS AND ZITHROMAX CONTINUE AT THIS TIME.
--- NOTE | 2020-10-02 19:30 | NUR ---
CONSULT CALLED FOR DR WILSON, DR WILSON PROVIDED PT INFORMATION AND ADVISES IF PT OXYGEN SATURATION DROPS TO CONTACT HIM.
--- NOTE | 2020-10-02 19:35 | NUR ---
PT DENIES ANY WOUNDS AT THIS TIME.
--- NOTE | 2020-10-02 20:03 | NUR ---
PT HAS HAD 2 EPISODES OF DIARRHEA,RESIDENT DR CHEEK MADE AWARE, ADVISED BY DR CHEEK TO MONITOR AT THIS TIME AND OBTAIN SPECIMEN IF POSSIBLE FOR CDIFF TESTING.
--- NOTE | 2020-10-02 20:04 | NUR ---
PT VITALS REASSESSED.PT REQUEST HOSPITAL BED FOR THIS EVENING.
[2020-10-02 20:05] VITALS: BP 110/53
--- NOTE | 2020-10-02 20:05 | NUR ---
2PUFFS OF ATROVENT INHALER ADMINISTERED PER EMAR.
--- NOTE | 2020-10-02 20:32 | NUR ---
PT PROVIDED FLOOR BED AT THIS TIME.
[2020-10-02] MEDS ORDERED: LOSARTAN POTASS50 M1 PO (21:03)
[2020-10-02] MEDS ORDERED: OMEPRAZOLE MAGN20 MG PO (21:03)
[2020-10-02] MEDS ORDERED: VITAMIN D250 MCG PO (21:05)
[2020-10-02] MEDS ORDERED: PROVENTIL HFA6.7 GM INH (21:07)
--- NOTE | 2020-10-02 21:07 | NUR ---
PT MEDICATIONS UPDATED PER PT.
[2020-10-02 21:12] VITALS: BP 118/55
--- NOTE | 2020-10-02 22:13 | NUR ---
PT DAUGHTER, CHRISTINA COLÓN, UPDATED ON PT CURRENT PLAN OF CARE.
--- NOTE | 2020-10-02 22:57 | NUR ---
PT RESTING IN BED.LIGHTS DIMMED FOR COMFORT.CALL BHATIA IS WITHIN REACH.PT DENIES ANY NEEDS AT THIS TIME.NS CONTINUES TO INFUSE.
[2020-10-03] VITALS (8 sets, daily range): BP systolic 113–147; BP diastolic 56–95
--- NOTE | 2020-10-03 02:22 | NUR ---
PT VITALS REASSESSED.PT IV DISLODGED WITH PT AMBULATING TO AND FROM BEDSIDE TOILET.IV REMOVED INTACT AND PRESSURE DRESSING APPLIED.NEW IV ESTABLISHED IN LT HAND WITH 22GAUGE ANGIOCATH.HEPLOCK IN PLACE.PT HAD EPISODE OF DARK BROWN WATERY DIARRHEA MIXED WITH URINE.UNABLE TO OBTAIN STOOL SPECIMEN AT THIS TIME.PT DENIES ANY NEEDS AT THIS TIME.
--- NOTE | 2020-10-03 02:29 | NUR ---
2PUFFS ATROVENT INHALER COMPLETED PER EMAR.
[2020-10-03 06:13] LABS: HEMATOCRIT 44.2 % (42.0-52.0); LYMPH # 0.8 10*3/uL (1.3-4.4); MEAN CORPUSCULAR HGB CONC 32.1 g/dl (33.0-37.0); MEAN PLATELET VOLUME 10.2 fl (9.6-12.3); MONO # 0.1 10*3/uL (0.1-1.0); MONO % 2.1 % (3.0-9.0); NEUT # 5.4 10*3/uL (2.3-7.9); NEUT % 85.6 % (47.0-73.0); PLATELET COUNT AUTOMATED 166 10*3/uL (130-400); RED BLOOD COUNT 5.26 10*6/uL (4.50-5.90); RED CELL DISTRI WIDTH 15.7 % (0-14.5); WHITE BLOOD COUNT 6.3 10*3/uL (4.8-10.8)
--- NOTE | 2020-10-03 06:26 | NUR ---
PT VITALS REASSESSED.PT DENIES ANY NEEDS AT THIS TIME.
[2020-10-03 06:29] LABS: ALBUMIN 3.2 gm/dl (3.1-4.5); CREATININE 2.08 mg/dL (0.70-1.30); TOTAL PROTEIN 7.1 gm/dL (6.4-8.2)
[2020-10-03 06:58] LABS: POTASSIUM 4.7 mmol/L (3.5-5.1)
--- NOTE | 2020-10-03 07:20 | NUR ---
PT REPORT ACCEPTED FOR CONTINUATION OF CARE. PT RESTING WITH EYES CLOSED. MEAL TRAY ORDERED. VITALS STABLE.
--- NOTE | 2020-10-03 10:13 | NUR ---
DR NOBLES CONSULT CALLED TO OFFICE NOW.
--- NOTE | 2020-10-03 10:48 | NUR ---
MEDS PROVIDED. BEDSIDE TOILET EMPTIED. PT WATCHING TV, VITALS STABLE. PT STATES HE FEELS WELL, "JUST TIRED". NO VOICED COMPLAINTS. PT EXPRESSES ANGER THAT HE CANNOT BE TAKEN TO A "REGULAR ROOM". PT IS ALREADY ON AN INPATIENT BED. HE IS FAIRLY INDEPENDENT WITH HIS TOILETING AND MEALS. CALLBELL REMAINS IN PLACE.
--- NOTE | 2020-10-03 13:03 | NUR ---
LUNCH TRAY PROVIDED. NO VOICED COMPLAINTS. EXTRA WATER JUG AND A CUP OF ICE PROVIDED. CALLBELL IN REACH BUT PT IS NOT USING IT.
--- NOTE | 2020-10-03 15:26 | NUR ---
NURSE REPORT TO RYAN MAYES, FOR CONTINUATION OF CARE.
--- NOTE | 2020-10-03 17:23 | NUR ---
CONFIRMED WITH DIETARY THAT A DINNER TRAY IS GOING TO COME.
--- NOTE | 2020-10-03 18:14 | NUR ---
MEAL TRAY SET UP FOR PATIENT. PT DENIES ANY NEEDS AT THIS TIME.
--- NOTE | 2020-10-03 21:39 | NUR ---
PT ON THE PHONE WITH HIS . A+OX3. O2 IN PLACE. CALL LIGHT IN REACH.
[2020-10-04] VITALS (8 sets, daily range): BP systolic 127–162; BP diastolic 64–81
--- NOTE | 2020-10-04 00:57 | NUR ---
PT RESTING IN BED WITH EYES CLOSED. CALL LIGHT IN REACH. [address]
--- NOTE | 2020-10-04 04:14 | NUR ---
PT RESTING IN BED WITH EYES CLOSED, CALL LIGHT WITHIN REACH, NO ACUTE DISTRESS NOTED UPON THIS RN EXITING THE ROOM
--- NOTE | 2020-10-04 06:00 | NUR ---
PT RESTING IN BED WITH EYES CLOSED, NO ACUTE DISTRESS NOTED UPON THIS RN EXITING THE ROOM, CALL LIGHT WITHIN REACH
--- NOTE | 2020-10-04 07:35 | NUR ---
PT ARRIVED TO THE FLOOR AT [id number] FROM THE ED. REPORT WAS GIVEN BEDSIDE BY
--- NOTE | 2020-10-04 20:00 | NUR ---
ASSUMED CARE OF PATIENT. PATIENT IS AAOX3 RESTING IN BED WITH EASY AND REGULAR RESPERS ON 4L O2 VIA NC. ASSESSMENT IS COMPLETE WITH NO C/O OR S/S OF DISTRESS NOTED AT THIS TIME. WILL CONTINUE TO MONITOR, SEE INTERVENTIONS.
--- NOTE | 2020-10-04 22:56 | NUR ---
CONTACTED DR. SAEZ IN REGARDS TO PATIENT INQUIRING ABOUT FLOMAX AND REMERON TONIGHT. WILL TAKE A LOOK AT IT.
[2020-10-05] VITALS: BP 149/72
--- NOTE | 2020-10-05 04:48 | NUR ---
CHART CHECK COMPLETE.
[2020-10-05 08:00] VITALS: BP 164/80
--- NOTE | 2020-10-05 09:00 | NUR ---
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 Patient states lives at home with . There are no steps in the home. Physician: nirav portillo Pharmacy: [facility] health services: none Patient's level of ADLs: INDEPENDENT Patient has working utilities: all working DME: home oxygen 2l/hs, portable tanks, nebulizer Follow-up physician's appointment after d/c: will be made by hospitalist nurse director upon discharge Does patient want to access PORTAL?: no Discharge plan discussed with patient, he lives at home with , he is independent in adls and ambulation, he has oxygen, portable tanks, nebulizer at home, he states he will return home when discharged and denies any home needs, case management will follow. JUWAN MELO
--- NOTE | 2020-10-05 10:30 | NUR ---
PT AWAKE/ALERT/ORIENTEDX3. LUNGS DIMINISHED T/O WITH FAINT WHEEZE NOTED. ABD SOFT & NONTENDER. NO EDEMA NOTED. PT HAS OCCASIONAL MOIST COUGH. ON 10L HIGH FLOW NC. CALL LIGHT WITHIN REACH.
[2020-10-05 12:00] VITALS: BP 149/65
[2020-10-05 16:00] VITALS: BP 155/68
[2020-10-05 20:00] VITALS: BP 160/68
--- NOTE | 2020-10-05 20:22 | NUR ---
PATIENT RESTING IN BED WITH NO NEEDS MADE. STATES HE IS FEELING WELL AND IS HOPING TO GO HOME TOMORROW. DISCUSSED CODE STATUS WITH PATIENT AND HE STATES HE WANTS EVERYTHING DONE INCLUDING CPR AND INTUBATION. ENCOURAGED TO USE CALL LIGHT FOR ASSISTANCE. BED IN LOW POSITION, CALL LIGHT IN REACH
[2020-10-06] VITALS: BP 173/82
--- NOTE | 2020-10-06 02:48 | NUR ---
PATIENT RESTING IN BED WITH NO S/S OF DISTRESS
[2020-10-06 08:00] VITALS: BP 125/90
[2020-10-06 08:34] LABS: BASO % 0.1 % (0.0-1.0); LYMPH # 1.6 10*3/uL (1.3-4.4); LYMPH % 22.9 % (27.0-41.0); MEAN CELL VOLUME 83.5 fl (80.0-94.0); MEAN CORPUSCULAR HGB 26.4 pg (27.0-31.0); MEAN CORPUSCULAR HGB CONC 31.6 g/dl (33.0-37.0); MEAN PLATELET VOLUME 9.4 fl (9.6-12.3); MONO # 0.6 10*3/uL (0.1-1.0); MONO % 8.8 % (3.0-9.0); NEUT # 4.6 10*3/uL (2.3-7.9); NEUT % 67.6 % (47.0-73.0); PLATELET COUNT AUTOMATED 209 10*3/uL (130-400); RED BLOOD COUNT 5.27 10*6/uL (4.50-5.90); RED CELL DISTRI WIDTH 15.1 % (0-14.5); WHITE BLOOD COUNT 6.8 10*3/uL (4.8-10.8)
[2020-10-06 08:35] LABS: ABG BASE EXCESS 3.6 mmol/L (-2.0-2.0); ARTERIAL BLOOD GAS PH 7.44 (7.35-7.45)
[2020-10-06 09:04] LABS: ALBUMIN 3.1 gm/dl (3.1-4.5); ALKALINE PHOSPHATASE 75 U/L (45-117); BUN 26 mg/dl (7-24); CHLORIDE 110 mmol/L (98-107); CREATININE 1.06 mg/dL (0.70-1.30); POTASSIUM 4.3 mmol/L (3.5-5.1); SGOT/AST 42 IU/L (3-35); SGPT/ALT 66 U/L (12-78); SODIUM 145 mmol/L (136-145); TOTAL PROTEIN 6.6 gm/dL (6.4-8.2)
[2020-10-06] MEDS ORDERED: DECADRON6 M1 PO (13:25)
--- NOTE | 2020-10-06 14:15 | NUR ---
Discharge instructions reviewed with patient/family. Patient receptive and verbalizes understanding. Follow-up care arranged. Written instructions given to patient/family. HEPLOCK DISCONTINUED. PATIENT TAKEN OFF FLOOR VIA WHEELCHAIR. PICKED UP BY SON IN LAW. EDUCATED PATIENT ON IMPORTANCE OF WEARING OXYGEN AT HOME ALL THE TIME. DANUTA YING
== END 2020-10-06 14:15 | disposition home or self-care (01) | DRG 177 ==
LOC: ED 14:21 → EDHOLD 16:43 → 4E 16:43
PROVIDERS: Internal Medicine Critical Care Medicine; Nurse Practitioner Family; Student in an Organized Health Care Education/Training Program; ADMIT Student in an Organized Health Care Education/Training Program; ATTEND Student in an Organized Health Care Education/Training Program
PROC: XW033E5 Introduction of Remdesivir Anti-infective into Peripheral Vein, Percutaneous Approach, New Technology Group 5 (ICD-10-PCS; principal; 2020-10-03)
DX: U07.1 COVID-19 (principal); N17.0 Acute kidney failure with tubular necrosis; J96.01 Acute respiratory failure with hypoxia; J12.89 Other viral pneumonia; J44.1 Chronic obstructive pulmonary disease with (acute) exacerbation; J44.0 Chronic obstructive pulmonary disease with (acute) lower respiratory infection; E87.6 Hypokalemia; I10 Essential (primary) hypertension; E83.42 Hypomagnesemia; Z90.49 Acquired absence of other specified parts of digestive tract; Z87.891 Personal history of nicotine dependence; Z83.6 Family history of other diseases of the respiratory system; Z80.8 Family history of malignant neoplasm of other organs or systems

== ENCOUNTER → 2021-03-05 | Outpatient (CLI) | payer MEDICARE ==
[~2021-03-05] MED LIST changes: +BREZTRI AEROS10.7 GM INH; +CELECOXIB200 M1 PO; +DECADRON6 M1 PO; +LOSARTAN POTASS50 M1 PO; +OMEPRAZOLE MAGN20 MG PO; +PROVENTIL HFA6.7 GM INH; +VITAMIN D250 MCG PO
== END | disposition home or self-care (01) ==
LOC: CT 10:30
PROVIDERS: ATTEND Internal Medicine
DX: R91.8 Other nonspecific abnormal finding of lung field (principal); I25.10 Atherosclerotic heart disease of native coronary artery without angina pectoris; R06.02 Shortness of breath; R05 Cough

== ENCOUNTER 2021-03-09 11:02 | Inpatient (IN) | payer MEDICARE ==
[~2021-03-09] VITALS: Ht 177.8 cm; Wt 85.5 kg
[~2021-03-09 11:02] MED LIST changes: -BREZTRI AEROS10.7 GM INH; -CELECOXIB200 M1 PO
[2021-03-09 11:17] VITALS: BP 134/67
[2021-03-09] MEDS ORDERED: CELECOXIB200 M1 PO (11:34)
[2021-03-09 12:00] LABS: BASO % 0.4 % (0.0-1.0); EOS # 0.1 10*3/uL (0.0-0.4); EOS % 1.4 % (1.0-4.0); HEMATOCRIT 45.3 % (42.0-52.0); LYMPH % 24.2 % (27.0-41.0); MEAN CORPUSCULAR HGB CONC 31.3 g/dl (33.0-37.0); MEAN PLATELET VOLUME 8.8 fl (9.6-12.3); MONO # 0.6 10*3/uL (0.1-1.0); MONO % 6.6 % (3.0-9.0); NEUT # 5.5 10*3/uL (2.3-7.9); NEUT % 66.6 % (47.0-73.0); PLATELET COUNT AUTOMATED 232 10*3/uL (130-400); RED BLOOD COUNT 5.46 10*6/uL (4.50-5.90); WHITE BLOOD COUNT 8.3 10*3/uL (4.8-10.8)
[2021-03-09 12:19] LABS: ALBUMIN 3.4 gm/dl (3.1-4.5); BUN 30 mg/dl (7-24); CHLORIDE 106 mmol/L (98-107); CREATININE 1.48 mg/dL (0.70-1.30); POTASSIUM 3.5 mmol/L (3.5-5.1); SGOT/AST 11 IU/L (3-35); SGPT/ALT 23 U/L (12-78); SODIUM 142 mmol/L (136-145); TOTAL PROTEIN 7.2 gm/dL (6.4-8.2)
[2021-03-09 12:22] LABS: ALKALINE PHOSPHATASE 82 U/L (45-117)
[2021-03-09 12:23] LABS: TROPONIN I < 0.015 ng/ml (<0.045)
[2021-03-09 14:30] VITALS: BP 139/52
[2021-03-09] MEDS ORDERED: BREZTRI AEROS10.7 GM INH (16:20)
[2021-03-09 16:40] VITALS: BP 154/82
[2021-03-09 20:00] VITALS: BP 138/61
[2021-03-10] VITALS: BP 137/54
[2021-03-10 08:00] VITALS: BP 142/72
[2021-03-10 12:00] VITALS: BP 152/73
[2021-03-10 16:00] VITALS: BP 157/67
[2021-03-10 20:00] VITALS: BP 160/70
[2021-03-11] VITALS (7 sets, daily range): BP systolic 140–182; BP diastolic 63–92
[2021-03-11 06:20] LABS: ALBUMIN 3.1 gm/dl (3.1-4.5); ALKALINE PHOSPHATASE 81 U/L (45-117); BUN 23 mg/dl (7-24); CHLORIDE 110 mmol/L (98-107); CREATININE 1.12 mg/dL (0.70-1.30); POTASSIUM 4.1 mmol/L (3.5-5.1); SGOT/AST 8 IU/L (3-35); SGPT/ALT 21 U/L (12-78); SODIUM 143 mmol/L (136-145); TOTAL PROTEIN 6.7 gm/dL (6.4-8.2)
[2021-03-11 06:26] LABS: BASO % 0.2 % (0.0-1.0); HEMATOCRIT 44.3 % (42.0-52.0); LYMPH # 1.4 10*3/uL (1.3-4.4); LYMPH % 11.6 % (27.0-41.0); MEAN CELL VOLUME 83.9 fl (80.0-94.0); MEAN CORPUSCULAR HGB 26.3 pg (27.0-31.0); MEAN CORPUSCULAR HGB CONC 31.4 g/dl (33.0-37.0); MEAN PLATELET VOLUME 9.4 fl (9.6-12.3); MONO # 0.8 10*3/uL (0.1-1.0); MONO % 6.7 % (3.0-9.0); NEUT # 9.3 10*3/uL (2.3-7.9); NEUT % 80.1 % (47.0-73.0); PLATELET COUNT AUTOMATED 256 10*3/uL (130-400); RED BLOOD COUNT 5.28 10*6/uL (4.50-5.90); RED CELL DISTRI WIDTH 14.7 % (0-14.5); WHITE BLOOD COUNT 11.6 10*3/uL (4.8-10.8)
[2021-03-12] VITALS (8 sets, daily range): BP systolic 154–173; BP diastolic 72–95
[2021-03-12 06:00] LABS: ALBUMIN 3.2 gm/dl (3.1-4.5); ALKALINE PHOSPHATASE 77 U/L (45-117); BUN 27 mg/dl (7-24); CHLORIDE 107 mmol/L (98-107); CREATININE 1.08 mg/dL (0.70-1.30); POTASSIUM 4.6 mmol/L (3.5-5.1); SGOT/AST 8 IU/L (3-35); SGPT/ALT 23 U/L (12-78); SODIUM 141 mmol/L (136-145); TOTAL PROTEIN 6.9 gm/dL (6.4-8.2)
[2021-03-12 06:10] LABS: BASO % 0.2 % (0.0-1.0); EOS % 0.1 % (1.0-4.0); HEMATOCRIT 45.4 % (42.0-52.0); LYMPH # 1.7 10*3/uL (1.3-4.4); LYMPH % 15.9 % (27.0-41.0); MEAN CELL VOLUME 84.9 fl (80.0-94.0); MEAN CORPUSCULAR HGB CONC 30.6 g/dl (33.0-37.0); MEAN PLATELET VOLUME 9.1 fl (9.6-12.3); MONO # 0.6 10*3/uL (0.1-1.0); MONO % 5.7 % (3.0-9.0); NEUT # 8.3 10*3/uL (2.3-7.9); NEUT % 76.1 % (47.0-73.0); PLATELET COUNT AUTOMATED 259 10*3/uL (130-400); RED BLOOD COUNT 5.35 10*6/uL (4.50-5.90); WHITE BLOOD COUNT 10.9 10*3/uL (4.8-10.8)
[2021-03-12 09:21] LABS: ACT PARTIAL THROMBO TIME 24.2 SECONDS (20.0-32.1)
[2021-03-13] VITALS: BP 139/72
[2021-03-13 05:56] LABS: ALBUMIN 3.1 gm/dl (3.1-4.5); ALKALINE PHOSPHATASE 86 U/L (45-117); BUN 28 mg/dl (7-24); CHLORIDE 108 mmol/L (98-107); CREATININE 1.23 mg/dL (0.70-1.30); POTASSIUM 4.6 mmol/L (3.5-5.1); SGOT/AST 12 IU/L (3-35); SGPT/ALT 23 U/L (12-78); SODIUM 137 mmol/L (136-145); TOTAL PROTEIN 7.3 gm/dL (6.4-8.2)
[2021-03-13 06:22] LABS: BASO % 0.2 % (0.0-1.0); LYMPH # 1.3 10*3/uL (1.3-4.4); LYMPH % 13.7 % (27.0-41.0); MEAN CELL VOLUME 83.9 fl (80.0-94.0); MEAN CORPUSCULAR HGB 26.1 pg (27.0-31.0); MEAN CORPUSCULAR HGB CONC 31.1 g/dl (33.0-37.0); MEAN PLATELET VOLUME 9.2 fl (9.6-12.3); MONO # 0.4 10*3/uL (0.1-1.0); MONO % 4.6 % (3.0-9.0); NEUT # 7.6 10*3/uL (2.3-7.9); NEUT % 79.9 % (47.0-73.0); PLATELET COUNT AUTOMATED 281 10*3/uL (130-400); RED CELL DISTRI WIDTH 14.9 % (0-14.5); WHITE BLOOD COUNT 9.5 10*3/uL (4.8-10.8)
[2021-03-13 08:00] VITALS: BP 162/74
[2021-03-13 11:07] LABS: ACID FAST SPEC PROCESSING Concentration (.)
[2021-03-13 12:00] VITALS: BP 153/66
[2021-03-13] MEDS ORDERED: DOXYCYCLINE100 M3 PO ×2 (14:41)
[2021-03-13] MEDS ORDERED: MEDROL DOSEPAK4 MG PO ×2 (14:41)
== END 2021-03-13 15:21 | disposition home or self-care (01) | DRG 193 ==
LOC: ED 11:02 → EDHOLD 13:12 → 4E 13:12
PROVIDERS: Internal Medicine Critical Care Medicine; Nurse Anesthetist, Certified Registered; Physician Assistant; ADMIT Internal Medicine; ATTEND Internal Medicine
PROC: 0BC18ZZ Extirpation of Matter from Trachea, Via Natural or Artificial Opening Endoscopic (ICD-10-PCS; principal; 2021-03-12)
PROC: 0BC98ZZ Extirpation of Matter from Lingula Bronchus, Via Natural or Artificial Opening Endoscopic (ICD-10-PCS; 2021-03-12)
PROC: 0BC48ZZ Extirpation of Matter from Right Upper Lobe Bronchus, Via Natural or Artificial Opening Endoscopic (ICD-10-PCS; 2021-03-12)
PROC: 0BC88ZZ Extirpation of Matter from Left Upper Lobe Bronchus, Via Natural or Artificial Opening Endoscopic (ICD-10-PCS; 2021-03-12)
PROC: 0BC58ZZ Extirpation of Matter from Right Middle Lobe Bronchus, Via Natural or Artificial Opening Endoscopic (ICD-10-PCS; 2021-03-12)
PROC: 0BC38ZZ Extirpation of Matter from Right Main Bronchus, Via Natural or Artificial Opening Endoscopic (ICD-10-PCS; 2021-03-12)
PROC: 0BC78ZZ Extirpation of Matter from Left Main Bronchus, Via Natural or Artificial Opening Endoscopic (ICD-10-PCS; 2021-03-12)
PROC: 0BC68ZZ Extirpation of Matter from Right Lower Lobe Bronchus, Via Natural or Artificial Opening Endoscopic (ICD-10-PCS; 2021-03-12)
PROC: 0BCB8ZZ Extirpation of Matter from Left Lower Lobe Bronchus, Via Natural or Artificial Opening Endoscopic (ICD-10-PCS; 2021-03-12)
DX: J18.9 Pneumonia, unspecified organism (principal); J96.21 Acute and chronic respiratory failure with hypoxia; J44.0 Chronic obstructive pulmonary disease with (acute) lower respiratory infection; J44.1 Chronic obstructive pulmonary disease with (acute) exacerbation; R91.8 Other nonspecific abnormal finding of lung field; F32.9 Major depressive disorder, single episode, unspecified; J20.9 Acute bronchitis, unspecified; K21.00 Gastro-esophageal reflux disease with esophagitis, without bleeding; E78.2 Mixed hyperlipidemia; E78.00 Pure hypercholesterolemia, unspecified; I12.9 Hypertensive chronic kidney disease with stage 1 through stage 4 chronic kidney disease, or unspecified chronic kidney disease; N18.9 Chronic kidney disease, unspecified; Z90.49 Acquired absence of other specified parts of digestive tract; Z87.891 Personal history of nicotine dependence; Z80.0 Family history of malignant neoplasm of digestive organs; Z82.5 Family history of asthma and other chronic lower respiratory diseases; Z86.16 Personal history of COVID-19; Z85.828 Personal history of other malignant neoplasm of skin

== ENCOUNTER 2021-03-24 10:12 | Inpatient (IN) | payer MEDICARE ==
[2021-03-24] VITALS (8 sets, daily range): BP systolic 103–142; BP diastolic 42–68
[~2021-03-24] VITALS: Ht 172.7 cm; Wt 81.6 kg
[~2021-03-24 10:12] MED LIST changes: +BREZTRI AEROS10.7 GM INH; +CELECOXIB200 M1 PO
[2021-03-24 10:37] LABS: BASO % 0.2 % (0.0-1.0); EOS # 0.1 10*3/uL (0.0-0.4); EOS % 0.8 % (1.0-4.0); HEMATOCRIT 44.3 % (42.0-52.0); LYMPH # 1.7 10*3/uL (1.3-4.4); LYMPH % 15.6 % (27.0-41.0); MEAN CORPUSCULAR HGB 26.5 pg (27.0-31.0); MEAN CORPUSCULAR HGB CONC 32.3 g/dl (33.0-37.0); MEAN PLATELET VOLUME 9.1 fl (9.6-12.3); MONO # 0.9 10*3/uL (0.1-1.0); MONO % 8.3 % (3.0-9.0); NEUT # 8.2 10*3/uL (2.3-7.9); NEUT % 74.5 % (47.0-73.0); PLATELET COUNT AUTOMATED 287 10*3/uL (130-400); RED CELL DISTRI WIDTH 15.6 % (0-14.5)
[2021-03-24 11:03] LABS: ALBUMIN 3.3 gm/dl (3.1-4.5); ALKALINE PHOSPHATASE 83 U/L (45-117); BUN 46 mg/dl (7-24); CHLORIDE 106 mmol/L (98-107); CREATININE 2.06 mg/dL (0.70-1.30); LIPASE 88 U/L (73-393); POTASSIUM 3.6 mmol/L (3.5-5.1); SGOT/AST 26 IU/L (3-35); SGPT/ALT 37 U/L (12-78); SODIUM 140 mmol/L (136-145); TOTAL PROTEIN 6.8 gm/dL (6.4-8.2)
[2021-03-24 11:06] LABS: TROPONIN I < 0.015 ng/ml (<0.045)
[2021-03-24] MEDS ORDERED: NORVASC10 MG PO (14:37)
[2021-03-24 19:54] LABS: CREATININE 1.54 mg/dL (0.70-1.30); POTASSIUM 3.6 mmol/L (3.5-5.1)
[2021-03-25] VITALS: BP 130/56
[2021-03-25 04:59] LABS: BILIRUBIN Negative (Negative); BLOOD Negative (Negative); CLARITY Clear (Clear); COLOR Yellow (Yellow); GLUCOSE Negative (Negative); KETONE Negative (Negative); LEUKO ESTERASE Negative (Negative); NITRITE Negative (Negative); UROBILINOGEN 0.2 E.U./dl (0.0-1.0)
[2021-03-25 06:44] LABS: BUN 32 mg/dl (7-24); CHLORIDE 108 mmol/L (98-107); CREATININE 1.17 mg/dL (0.70-1.30); POTASSIUM 3.5 mmol/L (3.5-5.1); SODIUM 142 mmol/L (136-145)
[2021-03-25 08:00] VITALS: BP 148/64
[2021-03-25 12:00] VITALS: BP 146/56
[2021-03-25 16:00] VITALS: BP 140/64
[2021-03-25 20:00] VITALS: BP 166/68
[2021-03-26] VITALS: BP 139/60
[2021-03-26 05:57] LABS: BASO % 0.3 % (0.0-1.0); EOS # 0.1 10*3/uL (0.0-0.4); EOS % 1.8 % (1.0-4.0); HEMATOCRIT 38.1 % (42.0-52.0); LYMPH # 1.4 10*3/uL (1.3-4.4); LYMPH % 22.4 % (27.0-41.0); MEAN CELL VOLUME 84.3 fl (80.0-94.0); MEAN CORPUSCULAR HGB 26.1 pg (27.0-31.0); MEAN PLATELET VOLUME 9.6 fl (9.6-12.3); MONO # 0.6 10*3/uL (0.1-1.0); MONO % 9.5 % (3.0-9.0); NEUT % 65.5 % (47.0-73.0); PLATELET COUNT AUTOMATED 207 10*3/uL (130-400); RED BLOOD COUNT 4.52 10*6/uL (4.50-5.90); RED CELL DISTRI WIDTH 15.4 % (0-14.5); WHITE BLOOD COUNT 6.1 10*3/uL (4.8-10.8)
[2021-03-26 06:14] LABS: CHLORIDE 111 mmol/L (98-107); CREATININE 1.01 mg/dL (0.70-1.30); POTASSIUM 3.4 mmol/L (3.5-5.1); SODIUM 145 mmol/L (136-145)
[2021-03-26 06:22] LABS: BUN 18 mg/dl (7-24)
[2021-03-26] MEDS ORDERED: LOSARTAN POTASS50 M1 PO (07:01)
[2021-03-26 08:00] VITALS: BP 148/61
== END 2021-03-26 09:40 | disposition home or self-care (01) | DRG 640 ==
LOC: ED 10:12 → EDHOLD 12:12 → 5E 12:12
PROVIDERS: Emergency Medicine; ADMIT Internal Medicine; ATTEND Internal Medicine
DX: E86.0 Dehydration (principal); N17.0 Acute kidney failure with tubular necrosis; J96.10 Chronic respiratory failure, unspecified whether with hypoxia or hypercapnia; B37.0 Candidal stomatitis; F32.1 Major depressive disorder, single episode, moderate; I95.1 Orthostatic hypotension; E87.2 Acidosis; N40.0 Benign prostatic hyperplasia without lower urinary tract symptoms; J44.9 Chronic obstructive pulmonary disease, unspecified; K21.9 Gastro-esophageal reflux disease without esophagitis; I10 Essential (primary) hypertension; E87.6 Hypokalemia; E86.9 Volume depletion, unspecified; N20.0 Calculus of kidney; D72.829 Elevated white blood cell count, unspecified; R79.82 Elevated C-reactive protein (CRP); M19.91 Primary osteoarthritis, unspecified site; E78.5 Hyperlipidemia, unspecified; Z87.01 Personal history of pneumonia (recurrent); Z90.49 Acquired absence of other specified parts of digestive tract; Z87.891 Personal history of nicotine dependence; Z80.0 Family history of malignant neoplasm of digestive organs; Z82.5 Family history of asthma and other chronic lower respiratory diseases; Z86.16 Personal history of COVID-19

== ENCOUNTER → 2021-03-30 | Outpatient (CLI) | payer MEDICARE ==
[~2021-03-30] MED LIST changes: +NORVASC10 MG PO
[2021-03-30 13:28] LABS: BUN 11 mg/dl (7-24); CHLORIDE 100 mmol/L (98-107); CREATININE 1.38 mg/dL (0.70-1.30); POTASSIUM 2.9 mmol/L (3.5-5.1); SODIUM 140 mmol/L (136-145)
== END | disposition home or self-care (01) ==
LOC: LAB 12:52
PROVIDERS: ATTEND Internal Medicine
DX: E78.00 Pure hypercholesterolemia, unspecified (principal)

== ENCOUNTER → 2021-04-05 | Outpatient (CLI) | payer MEDICARE ==
[2021-04-05 09:36] LABS: BASO % 0.2 % (0.0-1.0); EOS # 0.1 10*3/uL (0.0-0.4); EOS % 2.2 % (1.0-4.0); HEMATOCRIT 39.9 % (42.0-52.0); LYMPH # 1.7 10*3/uL (1.3-4.4); LYMPH % 28.5 % (27.0-41.0); MEAN CELL VOLUME 84.5 fl (80.0-94.0); MEAN CORPUSCULAR HGB 26.7 pg (27.0-31.0); MEAN CORPUSCULAR HGB CONC 31.6 g/dl (33.0-37.0); MEAN PLATELET VOLUME 8.7 fl (9.6-12.3); MONO # 0.4 10*3/uL (0.1-1.0); MONO % 7.2 % (3.0-9.0); NEUT # 3.6 10*3/uL (2.3-7.9); NEUT % 61.6 % (47.0-73.0); PLATELET COUNT AUTOMATED 300 10*3/uL (130-400); RED BLOOD COUNT 4.72 10*6/uL (4.50-5.90); RED CELL DISTRI WIDTH 15.3 % (0-14.5); WHITE BLOOD COUNT 5.8 10*3/uL (4.8-10.8)
[2021-04-05 10:11] LABS: ALBUMIN 2.9 gm/dl (3.1-4.5); BUN 15 mg/dl (7-24); CHLORIDE 106 mmol/L (98-107); POTASSIUM 3.4 mmol/L (3.5-5.1); SODIUM 144 mmol/L (136-145)
[2021-04-05 10:20] LABS: ALKALINE PHOSPHATASE 89 U/L (45-117); CHOLESTEROL 143 mg/dL (<200); CREATININE 1.18 mg/dL (0.70-1.30); FREE T4 1.18 ng/dl (0.76-1.46); LDL CHOLESTEROL 68 mg/dL (9-159); SGOT/AST 11 IU/L (3-35); SGPT/ALT 21 U/L (12-78); TOTAL PROTEIN 7.1 gm/dL (6.4-8.2); TRIGLYCERIDES 141 mg/dl (<150)
[2021-04-05 11:41] LABS: VITAMIN D, 25-HYDROXY 60.6 ng/mL (30-100)
== END | disposition home or self-care (01) ==
LOC: LAB 09:13
PROVIDERS: ATTEND Internal Medicine
DX: D52.9 Folate deficiency anemia, unspecified (principal); D51.9 Vitamin B12 deficiency anemia, unspecified; R70.0 Elevated erythrocyte sedimentation rate; R79.82 Elevated C-reactive protein (CRP); R74.8 Abnormal levels of other serum enzymes; R79.89 Other specified abnormal findings of blood chemistry; R53.81 Other malaise; E55.9 Vitamin D deficiency, unspecified; E03.9 Hypothyroidism, unspecified; Z13.21 Encounter for screening for nutritional disorder; Z13.1 Encounter for screening for diabetes mellitus; Z13.220 Encounter for screening for lipoid disorders; Z00.01 Encounter for general adult medical examination with abnormal findings

== ENCOUNTER 2021-04-08 09:20 | Inpatient (IN) | payer MEDICARE ==
[2021-04-08] VITALS (8 sets, daily range): BP systolic 143–179; BP diastolic 70–88
[~2021-04-08] VITALS: Ht 177.8 cm; Wt 86.7 kg
[2021-04-08 10:20] LABS: BASO % 0.6 % (0.0-1.0); EOS # 0.1 10*3/uL (0.0-0.4); EOS % 1.8 % (1.0-4.0); HEMATOCRIT 39.6 % (42.0-52.0); LYMPH # 1.5 10*3/uL (1.3-4.4); LYMPH % 21.6 % (27.0-41.0); MEAN CELL VOLUME 85.7 fl (80.0-94.0); MEAN CORPUSCULAR HGB 27.1 pg (27.0-31.0); MEAN CORPUSCULAR HGB CONC 31.6 g/dl (33.0-37.0); MEAN PLATELET VOLUME 8.9 fl (9.6-12.3); MONO # 0.3 10*3/uL (0.1-1.0); MONO % 4.6 % (3.0-9.0); NEUT # 4.8 10*3/uL (2.3-7.9); NEUT % 70.7 % (47.0-73.0); PLATELET COUNT AUTOMATED 389 10*3/uL (130-400); RED BLOOD COUNT 4.62 10*6/uL (4.50-5.90); RED CELL DISTRI WIDTH 15.9 % (0-14.5); WHITE BLOOD COUNT 6.8 10*3/uL (4.8-10.8)
[2021-04-08 10:41] LABS: ALBUMIN 3.3 gm/dl (3.1-4.5); ALKALINE PHOSPHATASE 80 U/L (45-117); BUN 19 mg/dl (7-24); CHLORIDE 111 mmol/L (98-107); CREATININE 1.35 mg/dL (0.70-1.30); POTASSIUM 3.7 mmol/L (3.5-5.1); SGOT/AST 11 IU/L (3-35); SGPT/ALT 21 U/L (12-78); SODIUM 140 mmol/L (136-145); TOTAL PROTEIN 7.2 gm/dL (6.4-8.2)
[2021-04-08] MEDS ORDERED: POTASSIUM CHLO20 ME4 PO (13:08)
[2021-04-08] MEDS ORDERED: PREDNISONE10 MG PO (13:08)
[2021-04-08 22:01] LABS: BILIRUBIN Negative (Negative); BLOOD Negative (Negative); CLARITY Clear (Clear); COLOR Yellow (Yellow); GLUCOSE Negative (Negative); KETONE Negative (Negative); LEUKO ESTERASE Negative (Negative); NITRITE Negative (Negative); SPECIFIC GRAVITY 1.015 (1.001-1.030); UROBILINOGEN 0.2 E.U./dl (0.0-1.0)
[2021-04-09] VITALS (8 sets, daily range): BP systolic 140–183; BP diastolic 77–86
[2021-04-09 08:10] LABS: BUN 13 mg/dl (7-24); CHLORIDE 108 mmol/L (98-107); POTASSIUM 3.7 mmol/L (3.5-5.1); SODIUM 143 mmol/L (136-145)
[2021-04-09 08:12] LABS: CREATININE 1.09 mg/dL (0.70-1.30)
[2021-04-10] VITALS: BP 157/81
[2021-04-10 08:00] VITALS: BP 178/78
[2021-04-10 12:00] VITALS: BP 176/82
[2021-04-10] MEDS ORDERED: LOSARTAN POTASS50 M1 PO (15:51)
[2021-04-10] MEDS ORDERED: AMLODIPINE BESY10 MG PO (15:51)
[2021-04-10] MEDS ORDERED: MIDODRINE HCL5 M1 PO ×2 (15:59→16:31)
[2021-04-10 16:00] VITALS: BP 170/85
== END 2021-04-10 16:57 | disposition home or self-care (01) | DRG 312 ==
LOC: ED 09:20 → EDHOLD 10:57 → 5E 10:57
PROVIDERS: Student in an Organized Health Care Education/Training Program; ADMIT Internal Medicine; ATTEND Internal Medicine
DX: I95.1 Orthostatic hypotension (principal); N17.0 Acute kidney failure with tubular necrosis; J96.10 Chronic respiratory failure, unspecified whether with hypoxia or hypercapnia; E87.2 Acidosis; N40.0 Benign prostatic hyperplasia without lower urinary tract symptoms; I10 Essential (primary) hypertension; E78.2 Mixed hyperlipidemia; K21.00 Gastro-esophageal reflux disease with esophagitis, without bleeding; F32.9 Major depressive disorder, single episode, unspecified; J43.2 Centrilobular emphysema; E86.1 Hypovolemia; Z90.49 Acquired absence of other specified parts of digestive tract; Z87.891 Personal history of nicotine dependence; Z80.8 Family history of malignant neoplasm of other organs or systems

== ENCOUNTER → 2021-04-23 | Outpatient (CLI) | payer MEDICARE ==
[~2021-04-23] MED LIST changes: +AMLODIPINE BESY10 MG PO; +MIDODRINE HCL5 M1 PO; +POTASSIUM CHLO20 ME4 PO; +PREDNISONE10 MG PO
== END | disposition home or self-care (01) ==
LOC: CT 08:40
PROVIDERS: ATTEND Urology
DX: N20.0 Calculus of kidney (principal); I70.0 Atherosclerosis of aorta; Z90.49 Acquired absence of other specified parts of digestive tract

== ENCOUNTER → 2021-05-19 | Outpatient (CLI) | payer MEDICARE | END | disposition home or self-care (01) | LOC: RESCLI 00:40 | PROVIDERS: ATTEND Internal Medicine | DX: I10 Essential (primary) hypertension (principal); J44.9 Chronic obstructive pulmonary disease, unspecified; E78.5 Hyperlipidemia, unspecified; N40.0 Benign prostatic hyperplasia without lower urinary tract symptoms; E55.9 Vitamin D deficiency, unspecified; K21.9 Gastro-esophageal reflux disease without esophagitis; F32.9 Major depressive disorder, single episode, unspecified; Z79.899 Other long term (current) drug therapy ==

== ENCOUNTER 2022-02-14 15:21 | Inpatient (IN) | payer MEDICARE ==
[~2022-02-14] VITALS: Ht 177.8 cm; Wt 81.4 kg
[2022-02-14 15:46] VITALS: BP 137/74
[2022-02-14 15:59] LABS: BASO % 0.4 % (0.0-1.0); EOS # 0.1 10*3/uL (0.0-0.4); EOS % 0.5 % (1.0-4.0); HEMATOCRIT 44.5 % (42.0-52.0); LYMPH # 1.3 10*3/uL (1.3-4.4); LYMPH % 13.4 % (27.0-41.0); MEAN CELL VOLUME 81.5 fl (80.0-94.0); MEAN CORPUSCULAR HGB 26.7 pg (27.0-31.0); MEAN CORPUSCULAR HGB CONC 32.8 g/dl (33.0-37.0); MEAN PLATELET VOLUME 9.7 fl (9.6-12.3); MONO # 0.4 10*3/uL (0.1-1.0); MONO % 4.5 % (3.0-9.0); NEUT # 7.6 10*3/uL (2.3-7.9); NEUT % 80.7 % (47.0-73.0); PLATELET COUNT AUTOMATED 267 10*3/uL (130-400); RED BLOOD COUNT 5.46 10*6/uL (4.50-5.90); RED CELL DISTRI WIDTH 14.2 % (0-14.5); WHITE BLOOD COUNT 9.4 10*3/uL (4.8-10.8)
[2022-02-14 16:16] LABS: CREATININE 1.49 mg/dL (0.70-1.30); POTASSIUM 2.9 mmol/L (3.5-5.1); TOTAL PROTEIN 7.6 gm/dL (6.4-8.2)
[2022-02-14] MEDS ORDERED: THEOPHYLLINE300 M2 PO (16:19)
[2022-02-14 16:27] LABS: ACT PARTIAL THROMBO TIME 28.5 SECONDS (20.0-32.1)
[2022-02-14 20:15] VITALS: BP 166/79
[2022-02-14] MEDS ORDERED: PRILOSEC20 M1 PO (20:42)
[2022-02-14] MEDS ORDERED: CELEBREX100 MG PO (20:43)
[2022-02-15] VITALS: BP 160/70
[2022-02-15 06:17] LABS: CREATININE 1.44 mg/dL (0.70-1.30); POTASSIUM 3.4 mmol/L (3.5-5.1)
[2022-02-15 08:00] VITALS: BP 149/69
[2022-02-15 12:00] VITALS: BP 145/65
[2022-02-15 16:00] VITALS: BP 135/50
[2022-02-15 20:00] VITALS: BP 131/65
[2022-02-16] VITALS: BP 141/61
[2022-02-16 06:37] LABS: CHLORIDE 110 mmol/L (98-107); POTASSIUM 3.5 mmol/L (3.5-5.1); SODIUM 145 mmol/L (136-145)
[2022-02-16 06:54] LABS: CREATININE 1.25 mg/dL (0.70-1.30)
[2022-02-16 07:07] LABS: BUN 29 mg/dl (7-24)
[2022-02-16 08:00] VITALS: BP 136/67
[2022-02-16 08:06] LABS: THEOPHYLLINE 8.9 ug/ml (10-20)
[2022-02-16 12:00] VITALS: BP 135/48
[2022-02-16 16:00] VITALS: BP 141/49
[2022-02-16 20:23] VITALS: BP 160/73
[2022-02-17] VITALS: BP 135/64
[2022-02-17 08:00] VITALS: BP 159/81
[2022-02-17] MEDS ORDERED: MAGNESIUM OXID400 MG PO (08:13)
[2022-02-17] MEDS ORDERED: Ipratropium Brom3 ML NEB (08:13)
[2022-02-17] MEDS ORDERED: DALI500T PO (08:13)
[2022-02-17] MEDS ORDERED: PREDNISONE5 MG PO (08:13)
[2022-02-17] MEDS ORDERED: CEFUROXIME AXE250 MG PO (08:13)
== END 2022-02-17 15:30 | disposition home or self-care (01) | DRG 871 ==
LOC: ED 15:21 → 4E 17:29 → EDHOLD 17:29 → 4E 19:55
PROVIDERS: Nurse Practitioner Family; ADMIT Internal Medicine; ATTEND Internal Medicine
DX: A41.9 Sepsis, unspecified organism (principal); N17.0 Acute kidney failure with tubular necrosis; J44.1 Chronic obstructive pulmonary disease with (acute) exacerbation; J44.0 Chronic obstructive pulmonary disease with (acute) lower respiratory infection; F33.1 Major depressive disorder, recurrent, moderate; E87.3 Alkalosis; E83.42 Hypomagnesemia; K21.9 Gastro-esophageal reflux disease without esophagitis; I10 Essential (primary) hypertension; J20.9 Acute bronchitis, unspecified; E78.2 Mixed hyperlipidemia; R91.1 Solitary pulmonary nodule; E87.6 Hypokalemia; N40.0 Benign prostatic hyperplasia without lower urinary tract symptoms; Z90.49 Acquired absence of other specified parts of digestive tract

== ENCOUNTER 2022-04-16 08:43 | Inpatient (IN) | payer MEDICARE ==
[~2022-04-16] VITALS: Ht 177.8 cm; Wt 78.6 kg
[~2022-04-16 08:43] MED LIST changes: +CELEBREX100 MG PO; +DALI500T PO; +Ipratropium Brom3 ML NEB; +MAGNESIUM OXID400 MG PO; +PRILOSEC20 M1 PO; +THEOPHYLLINE300 M2 PO
[2022-04-16 08:54] VITALS: BP 128/64
[2022-04-16 09:21] LABS: BASO % 0.3 % (0.0-1.0); EOS # 0.3 10*3/uL (0.0-0.4); EOS % 3.8 % (1.0-4.0); LYMPH % 15.4 % (27.0-41.0); MEAN CELL VOLUME 83.5 fl (80.0-94.0); MEAN CORPUSCULAR HGB 27.9 pg (27.0-31.0); MEAN CORPUSCULAR HGB CONC 33.4 g/dl (33.0-37.0); MEAN PLATELET VOLUME 8.7 fl (9.6-12.3); MONO # 0.6 10*3/uL (0.1-1.0); MONO % 8.6 % (3.0-9.0); NEUT # 4.7 10*3/uL (2.3-7.9); NEUT % 71.3 % (47.0-73.0); PLATELET COUNT AUTOMATED 232 10*3/uL (130-400); RED BLOOD COUNT 4.55 10*6/uL (4.50-5.90); RED CELL DISTRI WIDTH 13.8 % (0-14.5); WHITE BLOOD COUNT 6.6 10*3/uL (4.8-10.8)
[2022-04-16 09:35] LABS: ALKALINE PHOSPHATASE 87 U/L (45-117); BUN 17 mg/dl (7-24); CHLORIDE 105 mmol/L (98-107); CREATININE 1.13 mg/dL (0.70-1.30); POTASSIUM 3.1 mmol/L (3.5-5.1); SGOT/AST 18 IU/L (3-35); SGPT/ALT 35 U/L (12-78); SODIUM 142 mmol/L (136-145); TOTAL PROTEIN 7.1 gm/dL (6.4-8.2)
[2022-04-16 11:10] VITALS: BP 1470/66
[2022-04-16 11:15] VITALS: BP 148/65
[2022-04-16] MEDS ORDERED: COZAAR50 M1 PO (12:11)
[2022-04-16] MEDS ORDERED: MIDODRINE HCL5 M1 PO (12:13)
[2022-04-16 16:00] VITALS: BP 124/53
[2022-04-16 20:00] VITALS: BP 146/58
[2022-04-17] VITALS: BP 145/54
[2022-04-17 05:59] LABS: BUN 17 mg/dl (7-24); CHLORIDE 110 mmol/L (98-107); POTASSIUM 3.3 mmol/L (3.5-5.1); SODIUM 142 mmol/L (136-145)
[2022-04-17 06:00] LABS: CREATININE 0.91 mg/dL (0.70-1.30)
[2022-04-17 08:00] VITALS: BP 169/81
[2022-04-17 12:00] VITALS: BP 154/72
[2022-04-17 16:00] VITALS: BP 164/61
[2022-04-17 20:00] VITALS: BP 163/70
[2022-04-18] VITALS: BP 148/64
[2022-04-18 06:23] LABS: BUN 20 mg/dl (7-24); CHLORIDE 114 mmol/L (98-107); CREATININE 0.93 mg/dL (0.70-1.30); SODIUM 145 mmol/L (136-145)
[2022-04-18 06:30] LABS: POTASSIUM 4.7 mmol/L (3.5-5.1)
[2022-04-18 08:00] VITALS: BP 175/87
[2022-04-18 12:00] VITALS: BP 172/82
[2022-04-18 16:00] VITALS: BP 147/66
[2022-04-18 20:00] VITALS: BP 158/72
[2022-04-19] VITALS: BP 172/80
[2022-04-19 08:00] VITALS: BP 164/74
[2022-04-19 12:00] VITALS: BP 166/80
[2022-04-19 16:00] VITALS: BP 169/74
[2022-04-19 20:00] VITALS: BP 179/85
[2022-04-20] VITALS: BP 158/69
[2022-04-20 08:00] VITALS: BP 155/79
[2022-04-20 12:00] VITALS: BP 158/69
[2022-04-20 16:00] VITALS: BP 161/72
[2022-04-20 20:00] VITALS: BP 166/68
[2022-04-21] MEDS ORDERED: CIPRO500 MG PO (07:48)
[2022-04-21] MEDS ORDERED: PREDNISONE5 MG PO (07:48)
[2022-04-21] MEDS ORDERED: LOSARTAN POTASS50 M1 PO (07:48)
[2022-04-21 08:00] VITALS: BP 166/94
== END 2022-04-21 10:36 | disposition home or self-care (01) | DRG 178 ==
LOC: ED 08:43 → 5E 10:30 → EDHOLD 10:30 → 5E 10:54
PROVIDERS: Internal Medicine; ADMIT Internal Medicine; ATTEND Internal Medicine
DX: J15.6 Pneumonia due to other Gram-negative bacteria (principal); E87.3 Alkalosis; J44.1 Chronic obstructive pulmonary disease with (acute) exacerbation; J96.10 Chronic respiratory failure, unspecified whether with hypoxia or hypercapnia; E87.6 Hypokalemia; N40.0 Benign prostatic hyperplasia without lower urinary tract symptoms; E78.2 Mixed hyperlipidemia; Z90.49 Acquired absence of other specified parts of digestive tract; Z80.8 Family history of malignant neoplasm of other organs or systems; Z87.891 Personal history of nicotine dependence

== ENCOUNTER → 2022-08-22 | Outpatient (CLI) | payer MEDICARE ==
[~2022-08-22] MED LIST changes: +CIPRO500 MG PO
== END | disposition home or self-care (01) ==
LOC: RAD 10:56
PROVIDERS: ATTEND Internal Medicine
DX: J44.9 Chronic obstructive pulmonary disease, unspecified (principal)

== ENCOUNTER → 2022-09-30 | Outpatient (CLI) | payer MEDICARE | END | disposition home or self-care (01) | LOC: RAD 03:16 | PROVIDERS: ATTEND Internal Medicine | DX: M85.852 Other specified disorders of bone density and structure, left thigh (principal); Z79.899 Other long term (current) drug therapy ==

== ENCOUNTER → 2023-01-11 | Outpatient (CLI) | payer MEDICARE ==
[~2023-01-11] MED LIST changes: +PERFOROMIS20 MCG/2 M NEB
[2023-01-11 09:22] VITALS: BP 153/70
== END | disposition home or self-care (01) ==
LOC: INJECTION 02:23
PROVIDERS: ATTEND Internal Medicine
DX: M81.0 Age-related osteoporosis without current pathological fracture (principal); J44.9 Chronic obstructive pulmonary disease, unspecified; I10 Essential (primary) hypertension; Z87.891 Personal history of nicotine dependence

== ENCOUNTER 2023-02-13 15:18 | Emergency (ER) | payer MEDICARE ==
[~2023-02-13] VITALS: Ht 177.8 cm; Wt 79.4 kg
[2023-02-13 16:17] LABS: BASO % 0.5 % (0.0-1.0); EOS % 0.2 % (1.0-4.0); HEMATOCRIT 42.1 % (42.0-52.0); LYMPH # 1.5 10*3/uL (1.3-4.4); MEAN CELL VOLUME 87.9 fl (80.0-94.0); MONO # 0.4 10*3/uL (0.1-1.0); MONO % 4.8 % (3.0-9.0); NEUT % 74.5 % (47.0-73.0); PLATELET COUNT AUTOMATED 287 10*3/uL (130-400); RED BLOOD COUNT 4.79 10*6/uL (4.50-5.90); RED CELL DISTRI WIDTH 13.2 % (0-14.5); WHITE BLOOD COUNT 8.1 10*3/uL (4.8-10.8)
[2023-02-13 16:39] LABS: ALKALINE PHOSPHATASE 58 U/L (46-116); BUN 23 mg/dl (9-23); CHLORIDE 106 mmol/L (98-107); POTASSIUM 3.9 mmol/L (3.4-5.1); SGPT/ALT 19 U/L (10-49); TOTAL PROTEIN 6.2 gm/dL (6.0-8.0)
== END 2023-02-13 18:47 | disposition home or self-care (01) ==
LOC: ED 15:18
PROVIDERS: Family Medicine
DX: I95.1 Orthostatic hypotension (principal); Z87.891 Personal history of nicotine dependence; Z90.49 Acquired absence of other specified parts of digestive tract; Z79.899 Other long term (current) drug therapy

== ENCOUNTER → 2023-03-13 | Outpatient (CLI) | payer MEDICARE ==
[~2023-03-13] MED LIST changes: +BUPROPION75 MG PO; +LASIX20 MG PO; +LOSARTAN POTASS25 M1 PO; +MELATONIN10 M4 PO; +METOPROLOL SUCC25 M2 PO; +METOPROLOL SUCC50 M1 PO
[2023-03-13 08:11] LABS: BASO % 0.4 % (0.0-1.0); EOS # 0.1 10*3/uL (0.0-0.4); EOS % 1.6 % (1.0-4.0); HEMATOCRIT 43.8 % (42.0-52.0); LYMPH # 1.7 10*3/uL (1.3-4.4); LYMPH % 29.4 % (27.0-41.0); MEAN CELL VOLUME 86.4 fl (80.0-94.0); MEAN CORPUSCULAR HGB 27.8 pg (27.0-31.0); MEAN CORPUSCULAR HGB CONC 32.2 g/dl (33.0-37.0); MEAN PLATELET VOLUME 8.9 fl (9.6-12.3); MONO # 0.4 10*3/uL (0.1-1.0); MONO % 7.7 % (3.0-9.0); NEUT # 3.4 10*3/uL (2.3-7.9); NEUT % 60.5 % (47.0-73.0); PLATELET COUNT AUTOMATED 260 10*3/uL (130-400); RED BLOOD COUNT 5.07 10*6/uL (4.50-5.90); RED CELL DISTRI WIDTH 14.1 % (0-14.5); WHITE BLOOD COUNT 5.6 10*3/uL (4.8-10.8)
[2023-03-13 08:46] LABS: ALKALINE PHOSPHATASE 72 U/L (46-116); BUN 14 mg/dl (9-23); CHLORIDE 110 mmol/L (98-107); POTASSIUM 3.7 mmol/L (3.4-5.1); SGPT/ALT 18 U/L (10-49); TOTAL PROTEIN 6.8 gm/dL (6.0-8.0)
== END | disposition home or self-care (01) ==
LOC: LAB 01:05
PROVIDERS: ATTEND Internal Medicine
DX: E16.2 Hypoglycemia, unspecified (principal)

== ENCOUNTER → 2023-04-03 | Outpatient (CLI) | payer MEDICARE ==
[~2023-04-03] MED LIST changes: +DULERA 100 MCG-13 GM INH; +VITAMIN D250 MC1 PO
== END | disposition home or self-care (01) ==
LOC: CARD 03-31 07:00
PROVIDERS: ATTEND Internal Medicine
DX: R07.9 Chest pain, unspecified (principal); R06.02 Shortness of breath

== ENCOUNTER → 2023-04-20 | Outpatient (CLI) | payer MEDICARE | END | disposition home or self-care (01) | LOC: CT 01:46 | PROVIDERS: ATTEND Internal Medicine Critical Care Medicine | DX: J43.9 Emphysema, unspecified (principal); I25.10 Atherosclerotic heart disease of native coronary artery without angina pectoris; R91.8 Other nonspecific abnormal finding of lung field; Z90.49 Acquired absence of other specified parts of digestive tract ==

== ENCOUNTER → 2023-04-24 | Outpatient (CLI) | payer MEDICARE ==
[2023-04-27 05:06] LABS: ASPERGILLUS FUMIGATU, IGE 0.17 kU/L (Class 0/I)
== END | disposition home or self-care (01) ==
LOC: LAB 11:39
PROVIDERS: ATTEND Internal Medicine Critical Care Medicine
DX: J84.9 Interstitial pulmonary disease, unspecified (principal); J45.50 Severe persistent asthma, uncomplicated; J44.9 Chronic obstructive pulmonary disease, unspecified; Z87.891 Personal history of nicotine dependence; J96.11 Chronic respiratory failure with hypoxia; Z99.81 Dependence on supplemental oxygen; R91.1 Solitary pulmonary nodule

== ENCOUNTER → 2023-04-26 | Day surgery (SDC) | payer MEDICARE ==
[~2023-04-26] VITALS: Ht 175.2 cm; Wt 74.8 kg
[2023-04-26 08:42] VITALS: BP 165/79
[2023-04-26 09:21] VITALS: BP 157/82
[2023-04-26 09:36] VITALS: BP 156/78
[2023-04-26 09:50] VITALS: BP 154/80
[2023-04-27 14:09] LABS: ACID FAST SPEC PROCESSING Concentration (.)
== END | disposition home or self-care (01) ==
LOC: SDC 04-25 08:00
PROVIDERS: ATTEND Internal Medicine Critical Care Medicine
DX: R05.9 Cough, unspecified (principal); J40 Bronchitis, not specified as acute or chronic; I10 Essential (primary) hypertension; E78.00 Pure hypercholesterolemia, unspecified; J44.9 Chronic obstructive pulmonary disease, unspecified; Z87.891 Personal history of nicotine dependence; R91.1 Solitary pulmonary nodule; J96.11 Chronic respiratory failure with hypoxia; Z99.81 Dependence on supplemental oxygen; Z79.52 Long term (current) use of systemic steroids; Z98.890 Other specified postprocedural states

== ENCOUNTER → 2023-07-05 | Outpatient (CLI) | payer MEDICARE ==
[~2023-07-05] MED LIST changes: +DUTASTERIDE0.5 MG PO; +FUROSEMIDE20 M1 PO; +IMDUR SA30 MG PO; +MELATONIN5 M7 PO; +ONDANSETRON ODT8 MG PO; +SEPTDS PO
== END | disposition home or self-care (01) ==
LOC: RESCLI 01:47
PROVIDERS: ATTEND Family Medicine
DX: N40.0 Benign prostatic hyperplasia without lower urinary tract symptoms (principal); J44.9 Chronic obstructive pulmonary disease, unspecified; K21.9 Gastro-esophageal reflux disease without esophagitis; I10 Essential (primary) hypertension; M81.0 Age-related osteoporosis without current pathological fracture; R42 Dizziness and giddiness; I95.1 Orthostatic hypotension; F17.210 Nicotine dependence, cigarettes, uncomplicated; F32.9 Major depressive disorder, single episode, unspecified; E78.5 Hyperlipidemia, unspecified; Z98.890 Other specified postprocedural states; Z90.49 Acquired absence of other specified parts of digestive tract; Z79.899 Other long term (current) drug therapy

== ENCOUNTER → 2023-07-12 | Outpatient (CLI) | payer MEDICARE ==
[2023-07-12 09:53] VITALS: BP 125/50
== END | disposition home or self-care (01) ==
LOC: INJECTION 00:45
PROVIDERS: ATTEND Internal Medicine
DX: M81.0 Age-related osteoporosis without current pathological fracture (principal); I10 Essential (primary) hypertension; J44.9 Chronic obstructive pulmonary disease, unspecified; E78.00 Pure hypercholesterolemia, unspecified; F17.200 Nicotine dependence, unspecified, uncomplicated; Z85.828 Personal history of other malignant neoplasm of skin; Z90.49 Acquired absence of other specified parts of digestive tract

== ENCOUNTER 2023-09-22 07:57 | Emergency (ER) | payer MEDICARE ==
[~2023-09-22] VITALS: Ht 177.8 cm; Wt 72.3 kg
[~2023-09-22 07:57] MED LIST changes: +ATORVASTATIN CA20 M1 PO; +DUPIXENT200 MG/1.1 SQ
[2023-09-22 08:44] LABS: BASO % 0.3 % (0.0-1.0); EOS # 0.1 10*3/uL (0.0-0.4); EOS % 1.8 % (1.0-4.0); HEMATOCRIT 39.4 % (42.0-52.0); LYMPH # 1.3 10*3/uL (1.3-4.4); LYMPH % 21.4 % (27.0-41.0); MEAN CELL VOLUME 83.3 fl (80.0-94.0); MEAN CORPUSCULAR HGB 24.5 pg (27.0-31.0); MEAN CORPUSCULAR HGB CONC 29.4 g/dl (33.0-37.0); MEAN PLATELET VOLUME 10.1 fl (9.6-12.3); MONO # 0.4 10*3/uL (0.1-1.0); MONO % 6.9 % (3.0-9.0); NEUT # 4.3 10*3/uL (2.3-7.9); NEUT % 69.4 % (47.0-73.0); PLATELET COUNT AUTOMATED 269 10*3/uL (130-400); RED BLOOD COUNT 4.73 10*6/uL (4.50-5.90); RED CELL DISTRI WIDTH 14.4 % (0-14.5); WHITE BLOOD COUNT 6.3 10*3/uL (4.8-10.8)
[2023-09-22 09:06] LABS: ALKALINE PHOSPHATASE 77 U/L (46-116); BUN 15 mg/dl (9-23); CHLORIDE 108 mmol/L (98-107); POTASSIUM 3.7 mmol/L (3.4-5.1); TOTAL PROTEIN 6.7 gm/dL (6.0-8.0)
[2023-09-22 09:07] LABS: SGPT/ALT < 7 U/L (5-49)
[2023-09-22 09:19] LABS: ACT PARTIAL THROMBO TIME 27.7 SECONDS (20.0-32.1)
[2023-09-22] MEDS ORDERED: LASIX40 MG PO (09:29)
[2023-09-22] MEDS ORDERED: LASIX20 MG PO (09:57)
[2023-09-22] MEDS ORDERED: AVPAK AZITHROM250 M1 PO (09:57)
[2023-09-22] MEDS ORDERED: PREDNISONE20 M1 PO (09:57)
== END 2023-09-22 11:26 | disposition home or self-care (01) ==
LOC: ED 07:57
PROVIDERS: Emergency Medicine
DX: J44.1 Chronic obstructive pulmonary disease with (acute) exacerbation (principal); I11.0 Hypertensive heart disease with heart failure; I50.9 Heart failure, unspecified; E78.5 Hyperlipidemia, unspecified; Z90.49 Acquired absence of other specified parts of digestive tract; Z98.890 Other specified postprocedural states; F17.210 Nicotine dependence, cigarettes, uncomplicated; Z20.822 Contact with and (suspected) exposure to COVID-19

== ENCOUNTER → 2024-01-11 | Outpatient (CLI) | payer MEDICARE ==
[~2024-01-11] MED LIST changes: +AVPAK AZITHROM250 M1 PO; +DENOSUMAB 60 MG/ML SYRINGE SC ONE; +DOXYCYCLINE HY100 M3 PO; +LASIX40 MG PO; +PREDNISONE20 M1 PO; +PROLIA60 MG/M1 SC
[2024-01-11 10:45] VITALS: BP 126/62
== END | disposition home or self-care (01) ==
LOC: INJECTION 01:57
PROVIDERS: ATTEND Internal Medicine
DX: M81.0 Age-related osteoporosis without current pathological fracture (principal); I11.0 Hypertensive heart disease with heart failure; I50.9 Heart failure, unspecified; J44.9 Chronic obstructive pulmonary disease, unspecified; E78.00 Pure hypercholesterolemia, unspecified; Z87.891 Personal history of nicotine dependence; Z90.49 Acquired absence of other specified parts of digestive tract; Z98.890 Other specified postprocedural states; Z79.899 Other long term (current) drug therapy; Z83.6 Family history of other diseases of the respiratory system; Z82.49 Family history of ischemic heart disease and other diseases of the circulatory system

== ENCOUNTER → 2024-01-16 | Outpatient (CLI) | payer MEDICARE ==
[~2024-01-16] MED LIST changes: -DENOSUMAB 60 MG/ML SYRINGE SC ONE
[2024-01-16 08:09] LABS: BASO % 0.4 % (0.0-1.0); EOS # 0.1 10*3/uL (0.0-0.4); EOS % 1.2 % (1.0-4.0); HEMATOCRIT 43.3 % (42.0-52.0); LYMPH # 2.7 10*3/uL (1.3-4.4); LYMPH % 35.9 % (27.0-41.0); MEAN CELL VOLUME 87.5 fl (80.0-94.0); MEAN CORPUSCULAR HGB 25.9 pg (27.0-31.0); MEAN CORPUSCULAR HGB CONC 29.6 g/dl (33.0-37.0); MEAN PLATELET VOLUME 9.7 fl (9.6-12.3); MONO # 0.5 10*3/uL (0.1-1.0); MONO % 6.5 % (3.0-9.0); NEUT # 4.2 10*3/uL (2.3-7.9); NEUT % 55.6 % (47.0-73.0); PLATELET COUNT AUTOMATED 297 10*3/uL (130-400); RED BLOOD COUNT 4.95 10*6/uL (4.50-5.90); RED CELL DISTRI WIDTH 15.4 % (0-14.5); WHITE BLOOD COUNT 7.6 10*3/uL (4.8-10.8)
[2024-01-16 09:11] LABS: VITAMIN D, 25-HYDROXY 45.8 ng/mL (30-100)
[2024-01-16 09:12] LABS: ALKALINE PHOSPHATASE 61 U/L (46-116); BUN 29 mg/dl (9-23); CHLORIDE 106 mmol/L (98-107); CHOLESTEROL 168 mg/dL (<200); FREE T4 1.32 ng/dl (0.89-1.76); LDL CHOLESTEROL 75 mg/dL (9-159); POTASSIUM 3.7 mmol/L (3.4-5.1); SGPT/ALT 20 U/L (5-49); TOTAL PROTEIN 6.6 gm/dL (6.0-8.0); TRIGLYCERIDES 120 mg/dl (<150)
== END | disposition home or self-care (01) ==
LOC: LAB 01:39
PROVIDERS: ATTEND Internal Medicine
DX: Z13.0 Encounter for screening for diseases of the blood and blood-forming organs and certain disorders involving the immune mechanism (principal); Z13.1 Encounter for screening for diabetes mellitus; Z13.21 Encounter for screening for nutritional disorder; Z13.220 Encounter for screening for lipoid disorders; Z13.228 Encounter for screening for other metabolic disorders; Z13.29 Encounter for screening for other suspected endocrine disorder; Z13.6 Encounter for screening for cardiovascular disorders; Z13.89 Encounter for screening for other disorder; Z13.9 Encounter for screening, unspecified; I10 Essential (primary) hypertension; E11.9 Type 2 diabetes mellitus without complications; J44.9 Chronic obstructive pulmonary disease, unspecified

== ENCOUNTER → 2024-07-04 | Outpatient (CLI) | payer MEDICARE ==
[~2024-07-04] MED LIST changes: +ALBUTEROL S5 MG/1 ML INH; +ASPIRIN81 M1 PO; +ENTRESTO 24 MG1 EACH PO; +JARDIANCE10 MG PO; +MELATONINMAX10 MG PO; +MIDODRINE HCL10 MG PO; +OXYGEN NAS; +SIMVASTATIN80 MG PO
== END | disposition home or self-care (01) ==
LOC: RESCLI 00:02
PROVIDERS: ATTEND Family Medicine
DX: N40.0 Benign prostatic hyperplasia without lower urinary tract symptoms (principal); K21.9 Gastro-esophageal reflux disease without esophagitis; J44.9 Chronic obstructive pulmonary disease, unspecified; F32.9 Major depressive disorder, single episode, unspecified; Z79.899 Other long term (current) drug therapy; I10 Essential (primary) hypertension; E78.5 Hyperlipidemia, unspecified; I95.1 Orthostatic hypotension; M81.0 Age-related osteoporosis without current pathological fracture; Z87.891 Personal history of nicotine dependence; Z98.890 Other specified postprocedural states; Z90.49 Acquired absence of other specified parts of digestive tract

== ENCOUNTER → 2024-07-11 | Outpatient (CLI) | payer MEDICARE ==
[~2024-07-11] MED LIST changes: +DENOSUMAB 60 MG/ML SYRINGE SC ONE
[2024-07-11 10:20] VITALS: BP 119/64
== END | disposition home or self-care (01) ==
LOC: INJECTION 02:12
PROVIDERS: ATTEND Internal Medicine
DX: M81.0 Age-related osteoporosis without current pathological fracture (principal); I11.0 Hypertensive heart disease with heart failure; I50.9 Heart failure, unspecified; J44.9 Chronic obstructive pulmonary disease, unspecified

== ENCOUNTER 2024-07-24 09:32 | Inpatient (IN) | payer OTHER, MEDICARE ==
[~2024-07-24] VITALS: Ht 177.8 cm; Wt 74.8 kg
[2024-07-24] VITALS (7 sets, daily range): BP systolic 85–105; BP diastolic 40–56
[~2024-07-24 09:32] MED LIST changes: +ALDACTONE25 MG PO; -DENOSUMAB 60 MG/ML SYRINGE SC ONE; +LATANOPROST2.5 ML OU; +MONTELUKAST SOD10 MG PO; +PREDNISOLONE5 M1 PO; +ROFLUMILAST250 MCG PO; +Vibra-Tab100 MG PO
[2024-07-24 10:07] LABS: BASO # 0.1 10*3/uL (0.0-0.1); BASO % 0.4 % (0.0-1.0); EOS # 0.2 10*3/uL (0.0-0.4); EOS % 1.1 % (1.0-4.0); HEMATOCRIT 44.7 % (42.0-52.0); LYMPH % 21.8 % (27.0-41.0); MEAN CORPUSCULAR HGB 23.4 pg (27.0-31.0); MEAN CORPUSCULAR HGB CONC 29.3 g/dl (33.0-37.0); MEAN PLATELET VOLUME 10.1 fl (9.6-12.3); MONO # 0.9 10*3/uL (0.1-1.0); MONO % 6.3 % (3.0-9.0); NEUT # 9.3 10*3/uL (2.3-7.9); NEUT % 68.4 % (47.0-73.0); PLATELET COUNT AUTOMATED 488 10*3/uL (130-400); RED BLOOD COUNT 5.59 10*6/uL (4.50-5.90); RED CELL DISTRI WIDTH 16.6 % (0-14.5); WHITE BLOOD COUNT 13.6 10*3/uL (4.8-10.8)
[2024-07-24 10:29] LABS: BUN 53 mg/dl (9-23); CHLORIDE 94 mmol/L (98-107); POTASSIUM 4.8 mmol/L (3.4-5.1)
[2024-07-24 10:33] LABS: ETHYL ALCOHOL < 3.0 mg/dl (<3)
[2024-07-24 10:54] LABS: ACT PARTIAL THROMBO TIME 22.6 SECONDS (20.0-32.1)
[2024-07-24] MEDS ORDERED: Midodrine Hydrochloride 5 MG TAB PO ONE (11:25)
[2024-07-24 13:40] LABS: BILIRUBIN Negative (Negative); BLOOD Negative (Negative); CLARITY Clear (Clear); COLOR Yellow (Yellow); GLUCOSE 2+ (Negative); KETONE Negative (Negative); LEUKO ESTERASE Negative (Negative); NITRITE Negative (Negative); UROBILINOGEN 0.2 E.U./dl (0.0-1.0)
[2024-07-24 13:48] LABS: URINE AMPHETAMINES Negative (1000ng/ml); URINE BARBITURATES Negative (200ng/ml); URINE BENZODIAZEPINES Negative (200ng/ml); URINE CANNABINOIDS (THC) Negative (50ng/ml); URINE COCAINE Negative (300ng/ml); URINE METHADONE Negative (300ng/ml); URINE OPIATES Negative (300ng/ml); URINE PHENCYCLIDINE Negative (25ng/ml)
[2024-07-24 13:55] LABS: RBC 0-2 rbc/hpf (0-2)
[2024-07-24] MEDS ORDERED: ALDACTONE25 M1 PO (15:56)
[2024-07-24] MEDS ORDERED: SODIUM CHLORIDE 0.9% 500 ML IV ONE (16:35)
[2024-07-24] MEDS ORDERED: Acetaminophen/Hydrocodone 5 MG/325 MG TABLET PO PRN (16:40)
[2024-07-24] MEDS ORDERED: HYDROmorphONE Hydrochloride 0.5 MG/0.5 ML SYRINGE IV ONE (19:45)
[2024-07-24] MEDS ORDERED: Midodrine Hydrochloride 5 MG TAB PO SCH (22:00)
[2024-07-24] MEDS ORDERED: Duloxetine Hydrochloride 60 MG CAP PO SCH (22:00)
[2024-07-25 05:54] LABS: POTASSIUM 4.2 mmol/L (3.4-5.1)
[2024-07-25 06:26] LABS: BASO # 0.1 10*3/uL (0.0-0.1); BASO % 0.3 % (0.0-1.0); EOS # 0.4 10*3/uL (0.0-0.4); EOS % 2.2 % (1.0-4.0); HEMATOCRIT 42.9 % (42.0-52.0); LYMPH # 2.3 10*3/uL (1.3-4.4); LYMPH % 14.5 % (27.0-41.0); MEAN CELL VOLUME 79.6 fl (80.0-94.0); MEAN CORPUSCULAR HGB 23.7 pg (27.0-31.0); MEAN CORPUSCULAR HGB CONC 29.8 g/dl (33.0-37.0); MEAN PLATELET VOLUME 9.9 fl (9.6-12.3); MONO # 1.1 10*3/uL (0.1-1.0); MONO % 6.8 % (3.0-9.0); NEUT # 11.6 10*3/uL (2.3-7.9); NEUT % 74.5 % (47.0-73.0); PLATELET COUNT AUTOMATED 439 10*3/uL (130-400); RED BLOOD COUNT 5.39 10*6/uL (4.50-5.90); RED CELL DISTRI WIDTH 16.7 % (0-14.5); WHITE BLOOD COUNT 15.6 10*3/uL (4.8-10.8)
[2024-07-25 08:00] VITALS: BP 122/59
[2024-07-25] MEDS ORDERED: BUDESONIDE 0.5 MG AMP NEB SCH (08:25)
[2024-07-25] MEDS ORDERED: Albuterol Sulfate 2.5 MG/3 ML VIAL NEB SCH (08:25)
[2024-07-25] MEDS ORDERED: HYDROmorphONE Hydrochloride 0.5 MG/0.5 ML SYRINGE IV PRN (08:35)
[2024-07-25] MEDS ORDERED: ROFLUMILAST 500 MCG TAB PO SCH (10:00)
[2024-07-25] MEDS ORDERED: ASPIRIN ENTERIC COATED 81 MG TAB PO SCH (10:00)
[2024-07-25] MEDS ORDERED: LEVOFLOXACIN 250 MG TAB PO SCH (10:00)
[2024-07-25] MEDS ORDERED: FORMOTEROL INH SCH (10:00)
[2024-07-25] MEDS ORDERED: Montelukast Sodium 10 MG TAB PO SCH (10:00)
[2024-07-25] MEDS ORDERED: MOMETASONE INH SCH (10:00)
[2024-07-25] MEDS ORDERED: EMPAGLIFLOZIN 10 MG TABLET PO SCH (10:00)
[2024-07-25 12:00] VITALS: BP 116/63
[2024-07-25] MEDS ORDERED: Midodrine Hydrochloride 5 MG TAB PO SCH (14:00)
[2024-07-25 15:58] VITALS: BP 117/55
[2024-07-25] MEDS ORDERED: MUCINEX ER600 MG PO (16:15)
[2024-07-25] MEDS ORDERED: GUAIFENESIN 600 MG TAB ER PO SCH (16:20)
[2024-07-25 20:00] VITALS: BP 112/51
[2024-07-25] MEDS ORDERED: LATANOPROST 0.005% 2.5 ML BOTTLE INTRAOC SCH (22:00)
[2024-07-25] MEDS ORDERED: Tamsulosin Hydrochloride 0.4 MG CAP PO SCH (22:00)
[2024-07-25] MEDS ORDERED: ATORVASTATIN CALCIUM 20 MG TAB PO SCH (22:00)
[2024-07-25] MEDS ORDERED: DUTASTERIDE 0.5 MG CAP PO SCH (22:00)
[2024-07-25] MEDS ORDERED: METOPROLOL SUCCINATE XR 25 MG TAB PO SCH (22:00)
[2024-07-25] MEDS ORDERED: ZOLPIDEM TARTRATE 10 MG TAB PO SCH (22:00)
[2024-07-26] VITALS: BP 113/44
[2024-07-26 06:26] LABS: POTASSIUM 4.1 mmol/L (3.4-5.1)
[2024-07-26 06:33] LABS: BASO % 0.2 % (0.0-1.0); EOS # 0.1 10*3/uL (0.0-0.4); EOS % 0.6 % (1.0-4.0); LYMPH # 1.3 10*3/uL (1.3-4.4); LYMPH % 8.8 % (27.0-41.0); MEAN CELL VOLUME 78.7 fl (80.0-94.0); MEAN CORPUSCULAR HGB 23.6 pg (27.0-31.0); MEAN PLATELET VOLUME 9.6 fl (9.6-12.3); MONO # 0.9 10*3/uL (0.1-1.0); MONO % 6.3 % (3.0-9.0); NEUT % 82.9 % (47.0-73.0); PLATELET COUNT AUTOMATED 353 10*3/uL (130-400); RED BLOOD COUNT 5.21 10*6/uL (4.50-5.90); RED CELL DISTRI WIDTH 16.4 % (0-14.5); WHITE BLOOD COUNT 14.5 10*3/uL (4.8-10.8)
[2024-07-26 08:00] VITALS: BP 101/42
[2024-07-26] MEDS ORDERED: LEVOFLOXACIN250 M2 PO ×2 (08:54→08:55)
[2024-07-26] MEDS ORDERED: MIDODRINE HCL10 MG PO (08:54)
== END 2024-07-26 09:53 | disposition home or self-care (01) | DRG 312 ==
LOC: ED 09:32 → EDHOLD 12:14 → ICCU 12:14 → EDHOLD 12:15 → ICCU 14:30
PROVIDERS: Internal Medicine; ADMIT Internal Medicine; ATTEND Internal Medicine
DX: I95.1 Orthostatic hypotension (principal); N17.9 Acute kidney failure, unspecified; F33.9 Major depressive disorder, recurrent, unspecified; I25.10 Atherosclerotic heart disease of native coronary artery without angina pectoris; J44.9 Chronic obstructive pulmonary disease, unspecified; S51.811A Laceration without foreign body of right forearm, initial encounter; S61.511A Laceration without foreign body of right wrist, initial encounter; S41.112A Laceration without foreign body of left upper arm, initial encounter; E78.5 Hyperlipidemia, unspecified; F41.1 Generalized anxiety disorder; I50.9 Heart failure, unspecified; F51.01 Primary insomnia; V89.2XXA Person injured in unspecified motor-vehicle accident, traffic, initial encounter; Y93.89 Activity, other specified; Z88.8 Allergy status to other drugs, medicaments and biological substances; Z90.49 Acquired absence of other specified parts of digestive tract; Z80.8 Family history of malignant neoplasm of other organs or systems; Y92.89 Other specified places as the place of occurrence of the external cause; Y99.8 Other external cause status

== ENCOUNTER → 2024-08-19 | Outpatient (CLI) | payer MEDICARE ==
[~2024-08-19] MED LIST changes: +ALDACTONE25 M1 PO; +LEVOFLOXACIN250 M2 PO; +MUCINEX ER600 MG PO
== END | disposition home or self-care (01) ==
LOC: CARD 01:40
PROVIDERS: ATTEND Internal Medicine Cardiovascular Disease
DX: I08.3 Combined rheumatic disorders of mitral, aortic and tricuspid valves (principal); I42.9 Cardiomyopathy, unspecified; I50.22 Chronic systolic (congestive) heart failure; I25.10 Atherosclerotic heart disease of native coronary artery without angina pectoris; R06.02 Shortness of breath

== ENCOUNTER → 2024-11-13 | Day surgery (SDC) | payer MEDICARE ==
[~2024-11-13] VITALS: Ht 177.8 cm; Wt 77.1 kg
[~2024-11-13] MED LIST changes: +Balanced Salt Solution 500 ML OPH SCH; +Cefuroxime Sodium 5 MG in BALANCED SALT IRRIG SOLN NO.2 0.5 ML,SYRINGE, DISPOSABLE, 10 ... IO SCH; +Cyclopentolate Hydrochloride 1% 2 ML BOTTLE OPH ONE; +Midazolam Hydrochloride 2 MG/2 ML VIAL IV ONE; +OFLOXACIN 0.3% 5 ML BOTTLE ONE; +OFLOXACIN 0.3% 5 ML BOTTLE OPH SCH; +PHENYLEPHRINE/KETOROLAC 4 ML in Balanced Salt Solution 500 ML OPH SCH; +POVIDONE IODINE 5% OPHTHALMIC 30 ML BOTTLE OPH ONE; +POVIDONE IODINE 5% OPHTHALMIC 30 ML BOTTLE OPH SCH; +Phenylephrine Hydrochloride 2 ML BOT OPH ONE; +Phenylephrine Hydrochloride 2 ML BOT OPH SCH; +Proparacaine Hydrochloride 15 ML BOT OPH ONE; +Proparacaine Hydrochloride 15 ML BOT OPH SCH; +SODIUM CHLORIDE 0.9% 1,000 ML IV SCH; +TROPICAMIDE 3 ML BOT OPH ONE; +TROPICAMIDE 3 ML BOT OPH SCH; +Tetracaine Hydrochloride 0.5% 4 ML BOT OPH ONE; +Tetracaine Hydrochloride 0.5% 4 ML BOT OPH SCH; +prednisoLONE acetate 1% OPHTHALMIC 5 ML BOT OPH ONE; +prednisoLONE acetate 1% OPHTHALMIC 5 ML BOT OPH SCH
[2024-11-13 16:07] VITALS: BP 124/84
[2024-11-13 17:10] VITALS: BP 117/56
[2024-11-13 17:25] VITALS: BP 117/42
== END | disposition home or self-care (01) ==
LOC: SDC 11-11 09:30
PROVIDERS: ATTEND Ophthalmology
DX: H25.812 Combined forms of age-related cataract, left eye (principal); I11.0 Hypertensive heart disease with heart failure; I50.9 Heart failure, unspecified; J44.9 Chronic obstructive pulmonary disease, unspecified; E78.00 Pure hypercholesterolemia, unspecified; I25.2 Old myocardial infarction; Z87.891 Personal history of nicotine dependence; Z85.828 Personal history of other malignant neoplasm of skin; Z79.899 Other long term (current) drug therapy

== ENCOUNTER → 2024-12-11 | Day surgery (SDC) | payer MEDICARE ==
[~2024-12-11] VITALS: Ht 177.8 cm; Wt 77.1 kg
[~2024-12-11] MED LIST changes: +ATROPINE SULFATE 1% 2 ML BOTTLE ONE; +ATROPINE SULFATE 1% 2 ML BOTTLE OPH SCH; -POVIDONE IODINE 5% OPHTHALMIC 30 ML BOTTLE OPH ONE
[2024-12-11 10:34] VITALS: BP 152/61
[2024-12-11 13:09] VITALS: BP 123/64
[2024-12-11 13:24] VITALS: BP 113/53
[2024-12-11 13:39] VITALS: BP 129/71
== END | disposition home or self-care (01) ==
LOC: SDC 12-09 09:30
PROVIDERS: ATTEND Ophthalmology
DX: H25.11 Age-related nuclear cataract, right eye (principal); H57.03 Miosis; I11.0 Hypertensive heart disease with heart failure; I50.9 Heart failure, unspecified; I48.91 Unspecified atrial fibrillation; J44.9 Chronic obstructive pulmonary disease, unspecified; E78.00 Pure hypercholesterolemia, unspecified; I25.10 Atherosclerotic heart disease of native coronary artery without angina pectoris; I21.4 Non-ST elevation (NSTEMI) myocardial infarction; R65.20 Severe sepsis without septic shock; Z85.828 Personal history of other malignant neoplasm of skin; Z87.891 Personal history of nicotine dependence; Z90.49 Acquired absence of other specified parts of digestive tract; Z86.16 Personal history of COVID-19; Z98.890 Other specified postprocedural states; Z79.82 Long term (current) use of aspirin; Z79.899 Other long term (current) drug therapy

== ENCOUNTER → 2025-01-15 | Outpatient (CLI) | payer MEDICARE ==
[~2025-01-15] MED LIST changes: -ATROPINE SULFATE 1% 2 ML BOTTLE ONE; -ATROPINE SULFATE 1% 2 ML BOTTLE OPH SCH; -Balanced Salt Solution 500 ML OPH SCH; +COREG3.125 MG PO; -Cefuroxime Sodium 5 MG in BALANCED SALT IRRIG SOLN NO.2 0.5 ML,SYRINGE, DISPOSABLE, 10 ... IO SCH; -Cyclopentolate Hydrochloride 1% 2 ML BOTTLE OPH ONE; +DENOSUMAB 60 MG/ML SYRINGE SC ONE; +JARDIANCE25 MG PO; -Midazolam Hydrochloride 2 MG/2 ML VIAL IV ONE; -OFLOXACIN 0.3% 5 ML BOTTLE ONE; -OFLOXACIN 0.3% 5 ML BOTTLE OPH SCH; -PHENYLEPHRINE/KETOROLAC 4 ML in Balanced Salt Solution 500 ML OPH SCH; -POVIDONE IODINE 5% OPHTHALMIC 30 ML BOTTLE OPH SCH; -Phenylephrine Hydrochloride 2 ML BOT OPH ONE; -Phenylephrine Hydrochloride 2 ML BOT OPH SCH; -Proparacaine Hydrochloride 15 ML BOT OPH ONE; -Proparacaine Hydrochloride 15 ML BOT OPH SCH; -SODIUM CHLORIDE 0.9% 1,000 ML IV SCH; -TROPICAMIDE 3 ML BOT OPH ONE; -TROPICAMIDE 3 ML BOT OPH SCH; -Tetracaine Hydrochloride 0.5% 4 ML BOT OPH ONE; -Tetracaine Hydrochloride 0.5% 4 ML BOT OPH SCH; -prednisoLONE acetate 1% OPHTHALMIC 5 ML BOT OPH ONE; -prednisoLONE acetate 1% OPHTHALMIC 5 ML BOT OPH SCH
== END | disposition home or self-care (01) ==
LOC: INJECTION 00:27
PROVIDERS: ATTEND Internal Medicine
DX: M81.0 Age-related osteoporosis without current pathological fracture (principal); I11.0 Hypertensive heart disease with heart failure; I50.9 Heart failure, unspecified; J44.9 Chronic obstructive pulmonary disease, unspecified; E78.00 Pure hypercholesterolemia, unspecified; Z87.891 Personal history of nicotine dependence; Z90.49 Acquired absence of other specified parts of digestive tract

== ENCOUNTER → 2025-04-04 | Outpatient (CLI) | payer MEDICARE ==
[~2025-04-04] MED LIST changes: -DENOSUMAB 60 MG/ML SYRINGE SC ONE; +XANAX0.25 MG PO
== END | disposition home or self-care (01) ==
LOC: US 01:32
PROVIDERS: ATTEND Internal Medicine
DX: D17.79 Benign lipomatous neoplasm of other sites (principal); R22.1 Localized swelling, mass and lump, neck